=== PATIENT | female | born 1940 | race Caucasian/White ===

== ENCOUNTER 2018-02-24 06:58 | Outpatient (CLI) | payer OTHER ==
[2016-04-26 11:11] VITALS: BMI 18.5
--- NOTE | 2018-02-24 10:34 | STECHESEMD ---
Date of Test: 02/24/18 Ordering Physician: DR. TOSHA SHANNON Occupation: RETIRED Reason for Exam: SOB, CAD WITH STENT, CABG Smoking History: QUIT 2009 Height: 64" Weight: 115 LBS Current Medications: XOPENEX, NITROSTAT, ALENDRONATE, ALPRAZOLAM, CLOPIDOGREL, ASA, ATORVASTATIN, CARVEDILOL, TRIAMERENE, GABAPENTIN, PRAVASTATIN Resting EKG: SINUS RHYTHM/ NO ACUTE CHANGES Target Heart Rate: 123/145 S-T SEGMENT STAGE MPH/GRADE HEART RATE BPM BLOOD PRESSURE mmhg RHYTHM +/- ELEVATION DEPRESSION SYMPTOMS,COMMENTS At Rest 76 108/72 SR X NONE 1 1.7/0% 93 142/70 SR X NONE 2 1.7/5% 105 146/66 SR X NONE 3 1.7/10% 110 156/172 SR X NONE 4 2.5/12% 5 3.4/14% Immediately after 123 SR X FATIGUE Minutes Post Exercise 5:00 80 150/78 SR X FATIGUE Minutes Post Exercise DURATION OF EXERCISE: 10:11 MAXIMUM HEART RATE REACHED: 123 REASON FOR TERMINATION: FATIGUE 96% OXYGEN SATURATION WITH EXERCISE ON ROOM AIR METS 7.0 INTERPRETATION: 1. NO EVIDENCE OF ISCHEMIA BY ST-T WAVE 2. PVC'S NOTED AT REST AND WITH EXERCISE ( FEW, ISOLATED) 3. NO CHEST PAIN OR DISCOMFORT 4. BLOOD PRESSURE RESPONSE ADEQUATE HYPOKINETIC SEPTUM WITH IMPROVED LEFT VENTRICULAR CONTRACTILITY WITH EXERCISE SESTAMIBI TO FOLLOW MTDD
--- NOTE | 2018-02-24 10:38 | ECHOSTRESS ---
Date of Exam: 02/24/18 Ordering Physician: DR. TOSHA SHANNON Reason for Echo: CHEST PAIN, SOB, CAD WITH STENT, CABG, STRESS TEST--NO ISCHEMIA M-Mode Normal Adult Results LV Dimensions Normal Adult Results AoV Opening excursions >1.6 LVEDD-base- 3.5-5.8 Ao root dimensions 2.0-3.7 LVESD-base- 3.1-4.6 L. Atrium dimensions 1.9-3.8 Post. Wall thickness 0.8-1.1 IV septum (thickness) 0.7-1.2 Post. Wall excursion 0.72-1.3 Septal motion Systolic motion R. Ventricular cavity 1.5-2.0 LVEF 60% Paradoxical septal wall motion 2-D: HYPOKINETIC SEPTUM AT REST--NORMAL LEFT VENTRICULAR CONTRACTILITY--WITH EXERCISE M-MODE: MV: AV: TV: PV: CHAMBER SIZE: WALL MOTION:HYPOKINETIC SEPTUM AT REST--NORMAL LEFT VENTRICULAR CONTRACTILITY-- WITH EXERCISE PERICARDIUM: INTERPRETATION: 1. HYPOKINETIC SEPTUM AT REST--NORMAL LEFT VENTRICULAR CONTRACTILITY--WITH EXERCISE MTDD
--- NOTE | 2018-02-24 10:46 | NM ---
EXAM: Myocardial perfusion imaging HISTORY: Shortness of breath and coronary artery disease COMPARISON: Myocardial imaging on 04/12/2014 was normal. TECHNIQUE: Patient was injected 3.5 mCi of thallium 201 chloride intravenously while at rest. SPECT imaging of the heart was acquired. Patient was stressed using treadmill and at peak exercise injecte d 25.3 mCi of Tc99m Sestamibi intravenously. Another SPECT imaging of the heart was then acquired. Gated cardiac study was also performed. FINDINGS: Post stress images show normal left ventricular cavity size. There is a focal area of redu roel perfusion involving left ventricle apex. This shows reperfusion on delayed imaging. Another foc al area of reduced perfusion is noted in the mid-anterior wall which shows reperfusion on delayed frieda ging. The left ventricular ejection fraction is 61%. IMPRESSION: 1. SPECT myocardial imaging demonstrates a focal area of reversible ischemia involving mid-anterior wall and left ventricle apex. Left ventricular ejection fraction of 61%.
--- NOTE | 2018-02-24 12:37 | DI ---
EXAM: Chest two views HISTORY: Shortness of breath, chronic obstructive pulmonary disease COMPARISON: 04/23/2016 TECHNIQUE: Two views of the chest were performed FINDINGS: Lungs are clear. Lungs are hyperinflated. There is no pleural effusion or pneumothorax. The heart is normal in size. The mediastinal contour is normal, noting atherosclerosis. Median kalen rnotomy wires.. There are no acute abnormalities of the bones. IMPRESSION: 1. No acute cardiopulmonary process. 2. Hyperinflated lungs suggest chronic obstructive pulmonary disease.
--- NOTE | 2018-02-27 06:39 | ECHO2D ---
Date of Exam: 02/24/18 Ordering Physician: DR. TOSHA SHANNON Room #: OP Reason for Echo: SOB, CAD WITH STENT, CABG M-Mode Normal Adult Results LV Dimensions Normal Adult Results AoV Opening excursions >1.6 >1.6 LVEDD-base- 3.5-5.8 4.1 Ao root dimensions 2.0-3.7 3.0 LVESD-base- 3.1-4.6 L. Atrium dimensions 1.9-3.8 5.2 Post. Wall thickness 0.8-1.1 1.1 IV septum (thickness) 0.7-1.2 1.2 Post. Wall excursion 0.72-1.3 NORMAL Septal motion 0.5 Systolic motion R. Ventricular cavity 1.5-2.0 NORMAL LVEF 60% 46% Paradoxical septal wall motion NORMAL 2-D : HYPOKINETIC SEPTUM-NORMAL VALVES--NO EFFUSION, NO THROMBUS, ENLARGED LEFT ATRIAL SIZE, NORMAL LEFT VENTRICLE SIZE M-MODE: MV: NORMAL AV: NORMAL TV: NORMAL PV: CHAMBER SIZE: ENLARGED LEFT ATRIAL CAVITY WALL MOTION: HYPOKINETIC SEPTAL WALL PERICARDIUM: NORMAL INTERPRETATION: 1. LEFT VENTRICULAR HYPERTROPHY WITH ENLARGED LEFT ATRIAL CAVITY 2. HYPOKINETIC SEPTUM WITH LEFT VENTRICULAR EJECTION FRACTION 46% 3. NORMAL VALVES MTDD
== END 2018-02-24 06:59 | disposition home or self-care (01) ==
LOC: CAR 06:58
PROVIDERS: ATTEND Internal Medicine
DX: R06.02 Shortness of breath (principal); I25.810 Atherosclerosis of coronary artery bypass graft(s) without angina pectoris; Z95.5 Presence of coronary angioplasty implant and graft; J44.9 Chronic obstructive pulmonary disease, unspecified
CPT/HCPCS: 93005; 93010

== ENCOUNTER 2019-09-24 14:01 | Inpatient (IN) ==
[2019-09-24 14:49] VITALS: BMI 18.8
[2019-09-24] MEDS ORDERED: TYLENOL PO PRN (14:50)
[2019-09-24] MEDS ORDERED: ATROPINE SULFATE PFS IVP PRN (14:50)
[2019-09-24] MEDS ORDERED: VISTARIL INJ IM PRN (14:50)
[2019-09-24] MEDS ORDERED: DECADRON 4 MG/ML SDV IM STA (14:52)
[2019-09-24] MEDS ORDERED: ZOFRAN 4 MG/2 ML IVP STA (14:53)
[2019-09-24] MEDS ORDERED: ZOFRAN 4 MG/2 ML IVP PRN (14:53)
[2019-09-24] MEDS ORDERED: ZESTRIL PO ONE (14:55)
[2019-09-24] MEDS ORDERED: ROCEPHIN 1 GM/50 ML D5W 1 GM/50 ML BAG IV STA (15:00)
[2019-09-24 15:07] LABS: HEMATOCRIT 41.7 % (37.0-47.0)
--- NOTE | 2019-09-24 15:45 | DI ---
EXAM: Chest two views HISTORY: Cough COMPARISON: 02/24/2018 TECHNIQUE: Two views of the chest were performed FINDINGS: Lungs are clear. Lungs are hyperinflated. There is no pleural effusion or pneumothorax. The heart is normal in size. The mediastinal contour is normal, noting atherosclerosis. Median kalen rnotomy wires. There are no acute abnormalities of the bones. IMPRESSION: 1.No acute cardiopulmonary process. 2. Hyperinflated lungs may suggest chronic obstructive pulmonary disease.
[2019-09-24] MEDS ORDERED: LOMOTIL PO STA (15:47)
[2019-09-24] MEDS ORDERED: NITROGLYCERIN 0.3 MG SL PRN (15:50)
[2019-09-24] MEDS: DEXTROSE 5%-1/2NS IV SOLUTION 1,000 ML IV SCH (16:44)
[2019-09-24] MEDS: XOPENEX 1.25 MG NEB SCH ×2 (16:50→22:45)
[2019-09-24] MEDS: DOXYCYCLINE HYCLATE PO SCH ×2 (16:53→21:39)
[2019-09-24] MEDS: COREG PO SCH (17:29)
[2019-09-24] MEDS: CALCIUM 500 + VIT D 200 MG TABLET PO SCH (20:14)
[2019-09-24] MEDS: ASPIRIN CHEWABLE PO SCH (20:14)
[2019-09-24] MEDS: GLUCOSAMINE CHONDROITIN PO SCH (20:16)
[2019-09-24] MEDS: OMEGA-3 FISH OIL PO SCH (20:17)
[2019-09-24] MEDS: NEURONTIN PO SCH (20:17)
[2019-09-24] MEDS: VITAMIN D PO SCH (20:20)
[2019-09-24] MEDS: PLAVIX PO SCH (20:20)
[2019-09-24] MEDS ORDERED: [UNRECOGNIZED DRUG - OTHER] PO SCH (21:00)
[2019-09-24] MEDS ORDERED: OMEGA PO SCH (21:00)
[2019-09-24] MEDS: XANAX PO PRN (21:39)
[2019-09-25] MEDS: DEXTROSE 5%-1/2NS IV SOLUTION 1,000 ML IV SCH ×2 (04:15→17:50)
[2019-09-25] MEDS: XOPENEX 1.25 MG NEB SCH ×4 (05:06→23:00)
[2019-09-25 05:10] LABS: HEMATOCRIT 42.8 % (37.0-47.0)
[2019-09-25] MEDS ORDERED: ASPIRIN EC PO SCH (08:00)
[2019-09-25] MEDS: DECADRON 4 MG/ML SDV IM SCH (08:34)
[2019-09-25] MEDS: COREG PO SCH ×2 (08:35→16:37)
[2019-09-25] MEDS: DOXYCYCLINE HYCLATE PO SCH ×2 (08:35→20:28)
[2019-09-25] MEDS: NEURONTIN PO SCH ×2 (08:35→20:29)
[2019-09-25] MEDS: DYAZIDE PO SCH (08:35)
--- NOTE | 2019-09-25 08:35 | PCM.PROG ---
Attending Provider: ATTENDING PROVIDER: Dr. TOSHA SHANNON DATE OF SERVICE: 09/25/19 SUBJECTIVE: This 79 year old /WHITE F was hospitalized 09/24/19 with acute gastroenteritis symptoms and acute bronchitis with dehydration. The patient had not eaten for 3 days. She was lightheaded and dizzy. Condition improved remarkably. Gastroenteritis has practically resolved. She still has mild to moderate cough. REVIEW OF SYSTEMS: CONSTITUTIONAL: No night sweats. No fatigue, malaise, lethargy. No fever or chills. HEENT: Eyes: No visual changes. No eye pain. No eye discharge. ENT: No runny nose. No epistaxis. No sinus pain. No odynophagia. No congestion. RESPIRATORY: Positive for cough and expiratory wheeze. No hemoptysis. No shortness of breath. CARDIOVASCULAR: No angina symptoms. No CHF symptoms. No atypical chest pain for CAD. No palpitations. No orthopnea.. GASTROINTESTINAL: Appetite improved. No abdominal pain. No nausea or vomiting. No diarrhea or constipation. No hematemesis. No hematochezia. GENITOURINARY: No urgency. No frequency. No dysuria. No hematuria. No obstructive symptoms. No discharge. No pain. No significant abnormal bleeding. MUSCULOSKELETAL: No musculoskeletal pain; no joint swelling. NEUROLOGICAL: Awake, alert, oriented to time, place and person. No headache. No neck pain. No syncope. No seizures. No dizziness. PSYCHIATRIC: Not anxious. No depression. No suicidal thoughts. No homicidal thoughts. SKIN: No rash. No lesions. No wounds. ENDOCRINE: No unexplained weight loss. No weight gain. HEMATOLOGIC/LYMPHATIC: No anemia. No purpura. No petechiae. No prolonged or excessive bleeding. No palpable lymph nodes. PHYSICAL EXAMINATION: GENERAL: The patient is awake, alert and oriented, lying/sitting in bed in no distress. VITAL SIGNS: Temperature 98.1 F, Pulse 67, Respiratory Rate 20, BP 149/72, Pulse Ox 100% HEENT: Head normocephalic, atraumatic. Eyes: Extraocular muscles are intact. Pupils are equal, round and reactive to light and accommodation. Ears: No lesions. Nose appeared normal. Throat: No exudate or erythema. NECK: Supple. No JVD, no carotid bruit. No lymphadenopathy or thyromegaly. LUNGS: Decreased breath sounds with mild expiratory wheeze. Clear to auscultation. Percussion note normal. Chest symmetrical. HEART: S1, S2, no S3. No murmurs. No cyanosis or clubbing. No ascites. Pulses: Dorsalis pedis and posterior tibial pulses +1 to +2 both sides. ABDOMEN: Soft. Non-tender. Bowel sounds active. No CVA tenderness. No mass felt. EXTREMITIES: No edema. Full range of motion of all extremities, equal. NEUROLOGIC: No focal deficit. Cranial nerves II through XII are grossly intact. No headache, no double vision or headache. SKIN: Warm and dry. Intact. Turgor-better. LYMPHATIC: No palpable lymph nodes/no lymphedema. MUSCULOSKELETAL: Normal joints with no swelling. Muscle tone is normal. LAB REVIEW: 09/25/19 04:55 09/25/19 04:55 09/25/19 04:55: Sodium 139.3, Potassium 4.31, Chloride 100.7, Carbon Dioxide 31.1 H, Anion Gap 11.81, BUN 20.6 H, Creatinine 0.80, Estimated GFR (MDRD) 70.00, BUN/Creatinine Ratio 25.75, Glucose 115.0 H, Calcium 9.43, Total Bilirubin 0.35, AST 40.1 H, ALT 16.1, Alkaline Phosphatase 76.8, Total Protein 6.91, Albumin 4.01, Globulin 2.90, Albumin/Globulin Ratio 1.38 09/25/19 04:55: WBC 6.30, RBC 4.47, Hgb 14.0, Hct 42.8, MCV 95.7, MCH 31.3 H, MCHC 32.7, RDW Coeff of Figueroa 12.8, Plt Count 241, Immature Gran % (Auto) 0.5, Neut % (Auto) 80.2 H, Lymph % (Auto) 15.4, Nicholas % (Auto) 3.7, Eos % (Auto) 0.0, Baso % (Auto) 0.2, Immature Gran # (Auto) 0.0, Neut # (Auto) 5.1, Lymph # (Auto) 1.0, Nicholas # (Auto) 0.2 L, Eos # (Auto) 0.0, Baso # (Auto) 0.0 09/25/19 04:35: Urine Color Yellow, Urine Clarity Clear, Urine pH 5.5, Ur Specific Grover >=1.030, Urine Protein Negative, Urine Glucose (UA) Negative, Urine Ketones Negative, Urine Blood Negative, Urine Nitrite Negative, Urine Bilirubin Negative, Urine Urobilinogen 0.2, Ur Leukocyte Esterase Negative 09/24/19 22:55: Total Creatine Kinase 84.3, Troponin I < 0.012, TSH 0.204 L 09/24/19 15:02: Sodium 137.7, Potassium 3.74, Chloride 100.3, Carbon Dioxide 30.2 H, Anion Gap 10.94, BUN 20.5 H, Creatinine 0.86, Estimated GFR (MDRD) 64.00, BUN/Creatinine Ratio 23.83, Glucose 164.9 H, Calcium 9.10, Total Bilirubin 0.54, AST 40.7 H, ALT 16.4, Alkaline Phosphatase 89.5, Total Creatine Kinase 114.9, Troponin I < 0.012, Total Protein 6.63, Albumin 3.97, Globulin 2.66, Albumin/Globulin Ratio 1.49 09/24/19 15:02: WBC 7.42, RBC 4.42, Hgb 14.0, Hct 41.7, MCV 94.3, MCH 31.7 H, MCHC 33.6, RDW Coeff of Figueroa 12.9, Plt Count 241, Immature Gran % (Auto) 0.3, Neut % (Auto) 81.8 H, Lymph % (Auto) 13.6, Nicholas % (Auto) 4.2, Eos % (Auto) 0.0, Baso % (Auto) 0.1, Immature Gran # (Auto) 0.0, Neut # (Auto) 6.1, Lymph # (Auto) 1.0, Nicholas # (Auto) 0.3 L, Eos # (Auto) 0.0, Baso # (Auto) 0.0 09/24/19 15:00: Influ A Molecular Assay Negative by naat, Influ B Molecular Assay Negative by naat 09/24/19 14:59: Puncture Site Lrad, O2 Saturation 91.0 L, ABG pH 7.441, ABG pCO2 40.0, ABG pO2 60.0 L, ABG HCO3 27.2 H, ABG Total CO2 28, ABG Base Excess 3 H, Eusebio Test +, FiO2 % 21.0 ASSESSMENT: Please see below. 1. Acute gastroenteritis seems to have resolved. 2. Acute bronchitis with severe chronic lung disease. 3. Dehydration resolved, skin turgor better. PLAN: 1. Continue p.o. antibiotics, steroids and nebs. 2. Will d/c IV fluids. 3. Echocardiogram normal with LV contractility, enlarged RV cavity with v alvular structures normal. Plan and coordination of the patient's care discussed in the presence of [employer] and nurse. CONDITION: Stable SCRIBED BY: TEO SHAH, Heating Equipment Repairer scribed while in presence of service performed by Dr. TOSHA SHANNON on 09/25/19 ([id number])
[2019-09-25] MEDS: FLUTICASONE FUROATE VILANTEROL IH SCH (08:43)
[2019-09-25] MEDS ORDERED: ROCEPHIN 1 GM/50 ML D5W 1 GM/50 ML BAG IV SCH (09:00)
[2019-09-25] MEDS: XANAX PO PRN (09:59)
[2019-09-25] MEDS: ALBUTEROL 0.083% NEB NEB PRN (10:00)
--- NOTE | 2019-09-25 10:48 | HP ---
DATE OF SERVICE: 09/24/19 HISTORY OF PRESENT ILLNESS: 79-year-old White female with complaint of cough/congestion/diarrhea times 7 days. Also dizziness/light-headed/weak/pleuritic pain right-sided. The patient was seen on 09/20/19 and was given Cipro and steroids. The patient was advised hospitalization and had refused. No symptoms of CHF or CAD. PAST MEDICAL HISTORY: COPD Hypertension CAD with stent application 2009 Dyslipidemia Renal artery stenosis, left greater than right Basal cell carcinoma ( Case 09/2019 Anemia B12 deficiency Generalized anxiety disorder History of tobacco use (30 years) Osteoarthritis Osteoporosis Heart cath 03/2018 Dr. Pryor (Normal) CABG 1997 Right shoulder PFT (2017) severe COPD Stress Sestamibi (2017) Positive for focal area of reversible ischemia involving mid anterior wall and left ventricle apex MENSTRUAL HISTORY: 1997 PAST SURGICAL HISTORY: T & A Right knee times five Left knee, Ankle Tubal Gallbladder Incisional hernia Heart cath 03/2018 Dr. Pryor (Normal) CABG 1997 Right shoulder REVIEW OF SYSTEMS: CONSTITUTIONAL: No fever, no fatigue. HEENT: Sinus drainage. No sore throat. RESPIRATORY: Positive for cough. No hemoptysis. CARDIOVASCULAR: Positive for atypical chest pain for coronary artery disease. No angina, CHF symptoms, palpitations or shortness of breath. GASTROINTESTINAL: Vomited times three. No diarrhea or constipation. No GERD. GENITOURINARY: No hematuria, no polyuria. INDUSTRIAL GAS PRODUCTION OPERATOR: No blackout, no dizziness, no headache, no double vision. MUSCULOSKELETAL: Osteoarthritis pain. ENDOCRINE: No weight loss, no weight gain. SKIN: Dry skin. No rash. PSYCHIATRIC: Anxious. No depression, no suicidal thoughts, no homicidal thoughts. SOCIAL HISTORY: The patient quit smoking. No alcohol use. No drug use. The patient is . She has three children. Retired. FAMILY HISTORY: Father is from unknown. Mother from pneumonia. No brothers. No sisters. MEDICATIONS: Xanax 0.25 mg t.i.d. B12 monthly 1000 mcg Coreg 12.5 mg b.i.d. Pravachol 80 mg one daily Plavix 75 mg one daily Neurontin 600 mg b.i.d. Dyazide three weekly p.r.n. Albuterol for nebulizer 0.083% p.r.n. Osteo Bi-Flex [id number] one daily ASA 81 mg one daily Nitroglycerin p.r.n. Vitamin D 1000 mg one daily Fish Oil 1000 mg one daily Breo Started : Cipro 500 mg b.i.d. times 10 days Prednisone one daily times 10 days ALLERGIES: CODEINE (FROM EMPIRIN W/CODEINE), SULFA, LEVAQUIN, TALWIN, LIPITOR, PENICILLIN, DYE PHYSICAL EXAMINATION: V/S: Pulse 86, BP 118/68, temperature 97.7, 02 sat 94%, Height 5'4", Weight 109 lbs, BMI 18.5 GENERAL APPEARANCE: Oriented times three. HEENT: Normal. NECK: No JVP, no bruits. RESPIRATORY: Lungs have decreased breath sounds. CARDIOVASCULAR: S1, S2, no S3, no murmur. No cyanosis, clubbing. No ascites. GI/ABDOMEN: No tenderness. Bowel sounds are active. EXTREMITIES: edema, pulses +1, equal. INDUSTRIAL GAS PRODUCTION OPERATOR: Deep tendon reflexes, sensory, motor and gait all normal. RECTAL/PELVIC: Colonoscopy - the patient refused. Pelvic: Advised yearly. Mammogram 2005 [place]. [facility] refused repeat. ASSESSMENT: 1. Acute gastroenteritis 2. Acute bronchitis 3. Right-sided pleuritic pain 4. Dehydration 5. Vascular/ M.D. December 2019 6. Basal cell carcinoma nose, Dr. Frazier, appointment 10/18 7. History of bronchitis 8. Left renal artery stenosis left 86%, right 50% ( Dr. Garrido) 9. Heart cath 03/18 Dr. Pryor (Normal) 10. Stress Sestamibi 02/24/18 11. B12 deficiency 12. Osteoarthritis/osteoporosis 13. Anemia 14. Hypertension 15. CAD with stent 06/10 16. Right Shoulder (Dr. Bowman) 17. COPD - history of smoking 18. CABG's 1997 19. Generalized anxiety disorder 20. Dyslipidemia PLAN: 1. Admit 2. Routine telemetry orders 3. 1 cc Decadron IM today and daily a.m. 4. Zofran 4 mg IV now and 8 hourly for nausea 5. Lomotil 2.5 mg p.o. now 6. 1000 cc D5 1/2 NS 12 hourly 7. Daily CBC, CMP 8. ABG 9. Xopenex q.6hourly 10. Rocephin 1 gm IV today and daily a.m. 11. TSH 12. Flu A & B test 13. Continue all medications TIME SPENT: More than 70 minutes MTDD
[2019-09-25] MEDS: NITROSTAT SL PRN ×2 (17:16→18:03)
[2019-09-25] MEDS: ASPIRIN CHEWABLE PO SCH (20:28)
[2019-09-25] MEDS: OMEGA-3 FISH OIL PO SCH (20:28)
[2019-09-25] MEDS: VITAMIN D PO SCH (20:29)
[2019-09-25] MEDS: PLAVIX PO SCH (20:29)
[2019-09-25] MEDS: CALCIUM 500 + VIT D 200 MG TABLET PO SCH (20:29)
[2019-09-25] MEDS: GLUCOSAMINE CHONDROITIN PO SCH (21:12)
[2019-09-26 05:07] LABS: HEMATOCRIT 38.6 % (37.0-47.0)
[2019-09-26] MEDS: XOPENEX 1.25 MG NEB SCH ×4 (05:10→22:55)
--- NOTE | 2019-09-26 08:17 | ECHO2D ---
Date of Exam: 09/25/2019 Ordering Physician: DR. TOSHA SHANNON Room #: [id number] Reason for Echo: SOB, HX CAD WITH STENT, CABG M-Mode Normal Adult Results LV Dimensions Normal Adult Results AoV Opening excursions >1.6 >1.6 LVEDD-base- 3.5-5.8 4.1 Ao root dimensions 2.0-3.7 3.0 LVESD-base- 3.1-4.6 L. Atrium dimensions 1.9-3.8 4.6 Post. Wall thickness 0.8-1.1 1.2 IV septum (thickness) 0.7-1.2 1.2 Post. Wall excursion 0.72-1.3 NORMAL Septal motion 0.8 Systolic motion R. Ventricular cavity 1.5-2.0 3.0 LVEF 60% 55-60% Paradoxical septal wall motion NORMAL 2-D : 2-D M Mode Echocardiogram was performed using apical four chamber and left parasternal long and short axis views. Mitral, tricuspid and aortic valves appear to be normal. Contractility of the left ventricle seems to be normal, so is the cavity size. ENLARGED LEFT ATRIAL CAVITY AND RIGHT VENTRICLE CAVITY Aortic root appears to be normal. There is no pericardial effusion. There is no thrombus noted in the left ventricle or left atrial cavity. No mitral valve prolapse noted. M-MODE: MV: NORMAL AV: NORMAL TV: NORMAL PV: CHAMBER SIZE: ENLARGED RIGHT VENTRICLE AND LEFT ATRIAL CAVITIES WALL MOTION: NORMAL PERICARDIUM: NORMAL INTERPRETATION: 1. BORDERLINE LEFT VENTRICLE HYPERTROPHY 2. ENLARGED LEFT ATRIAL AND RIGHT VENTRICLE CAVITIES 3. NORMAL LEFT VENTRICLE CONTRACTILITY 4. NORMAL VALVES MTDD
[2019-09-26] MEDS: COREG PO SCH ×2 (08:31→16:54)
[2019-09-26] MEDS: DOXYCYCLINE HYCLATE PO SCH ×2 (08:31→20:33)
[2019-09-26] MEDS: NEURONTIN PO SCH ×2 (08:32→20:32)
[2019-09-26] MEDS: DECADRON 4 MG/ML SDV IM SCH (08:33)
[2019-09-26] MEDS: FLUTICASONE FUROATE VILANTEROL IH SCH (08:38)
[2019-09-26] MEDS ORDERED: SYMBICORT 160-4.5 MCG INHALER IH SCH (11:30)
[2019-09-26] MEDS: SYMBICORT 160-4.5 MCG INHALER IH SCH (11:52)
--- NOTE | 2019-09-26 12:47 | PN ---
DATE OF SERVICE: 09/26/19 SUBJECTIVE: This 79-year-old white female hospitalized with acute gastroenteritis, acute bronchitis and chronic lung disease. The acute gastroenteritis has completely resolved. Appetite is normal. Bronchitis still persists. She is on nebs treatments, antibiotics and steroids. REVIEW OF SYSTEMS: CONSTITUTIONAL: No night sweats. No fatigue, malaise, lethargy. No fever or chills. HEENT: Eyes: No visual changes. No eye pain. No eye discharge. ENT: No runny nose. No epistaxis. No sinus pain. No sore throat. No odynophagia. No congestion. RESPIRATORY: No cough, no congestion. No hemoptysis. No shortness of breath. CARDIOVASCULAR: No angina symptoms. No CHF symptoms. No atypical chest pain for CAD. No palpitations. No PND. No orthopnea. GASTROINTESTINAL: Appetite has improved. No abdominal pain. No nausea or vomiting. No diarrhea or constipation. No hematemesis. No hematochezia. GENITOURINARY: No urgency. No frequency. No dysuria. No hematuria. No obstructive symptoms. No discharge. No pain. No significant abnormal bleeding. MUSCULOSKELETAL: No musculoskeletal pain; no joint swelling. NEUROLOGICAL: No headache. No neck pain. No syncope. No seizures. No dizziness. PSYCHIATRIC: Not anxious. No depression. No suicidal thoughts. No homicidal thoughts. SKIN: No rash. No lesions. No wounds. ENDOCRINE: No unexplained weight loss. No weight gain. HEMATOLOGIC/LYMPHATIC: No anemia. No purpura. No petechiae. No prolonged or excessive bleeding. No palpable lymph nodes. PHYSICAL EXAMINATION: VITAL SIGNS: Temperature 97.7, pulse 69, respiratory rate 20, BP 140/79, pulse ox 97%. HEENT: Head normocephalic, atraumatic. Eyes: Extraocular muscles are intact. Pupils are equal, round and reactive to light and accommodation. Ears: No lesions. Nose appeared normal. Throat: No exudate or erythema. NECK: Supple. No JVD, no carotid bruit. No lymphadenopathy or thyromegaly. LUNGS: Decreased breath sounds, mild wheeze. Percussion note normal. Chest symmetrical. HEART: S1, S2, no S3. No murmurs. No cyanosis or clubbing. No ascites. Pulses: Dorsalis pedis and posterior tibial pulses +1 to +2 bilaterally. ABDOMEN: Soft. Nontender. Bowel sounds active. No CVA tenderness. No mass felt. EXTREMITIES: No edema. Full range of motion of all extremities, equal. NEUROLOGIC: No focal deficit. Cranial nerves II through XII are grossly intact. No headache, no double vision or headache. SKIN: Not dry. Intact. Turgor - normal. LYMPHATIC: No palpable lymph nodes/no lymphedema. MUSCULOSKELETAL: Normal joints with no swelling. Muscle tone is normal. LABS: Hemoglobin 12.7, hematocrit 38, WBC 9,400, normal differential. Creatinine 0.9, BUN 21, potassium 3.8. ASSESSMENT: 1. ACUTE BRONCHITIS WITH COPD SEEMS TO BE RESOLVING, STILL NEEDS TO HAVE FURTHER HOSPITALIZATION WITH NEBS AND ANTIBIOTICS. 2. ACUTE GASTROENTERITIS, RESOLVED. 3. DEHYDRATION, RESOLVED. 4. CARDIOVASCULAR STATUS STABLE. NO EVIDENCE OF CHF OR CORONARY INSUFFICIENCY. CONDITION: Stable. TIME SPENT: More than 30 minutes. Plan and coordination of the patient's care discussed in the presence of nurse. FUAD
[2019-09-26] MEDS ORDERED: PROAIR HFA (SINGLE PATIENT USE) IH PRN (13:55)
[2019-09-26] MEDS: PROAIR HFA (SINGLE PATIENT USE) IH PRN (14:05)
[2019-09-26] MEDS: ASPIRIN CHEWABLE PO SCH (20:32)
[2019-09-26] MEDS: CALCIUM 500 + VIT D 200 MG TABLET PO SCH (20:33)
[2019-09-26] MEDS: OMEGA-3 FISH OIL PO SCH (20:33)
[2019-09-26] MEDS: VITAMIN D PO SCH (20:33)
[2019-09-26] MEDS: XANAX PO PRN (20:33)
[2019-09-26] MEDS: PLAVIX PO SCH (20:33)
[2019-09-26] MEDS: GLUCOSAMINE CHONDROITIN PO SCH (20:50)
[2019-09-27 04:46] LABS: HEMATOCRIT 39.2 % (37.0-47.0)
[2019-09-27] MEDS: XOPENEX 1.25 MG NEB SCH ×4 (05:25→23:09)
[2019-09-27] MEDS: PROAIR HFA (SINGLE PATIENT USE) IH PRN ×2 (06:30→10:31)
[2019-09-27] MEDS: COREG PO SCH ×2 (08:16→17:32)
[2019-09-27] MEDS: DECADRON 4 MG/ML SDV IM SCH (08:16)
[2019-09-27] MEDS: NEURONTIN PO SCH ×2 (08:16→20:20)
[2019-09-27] MEDS: DOXYCYCLINE HYCLATE PO SCH ×2 (08:16→20:19)
[2019-09-27] MEDS: FLUTICASONE FUROATE VILANTEROL IH SCH (08:17)
[2019-09-27] MEDS: SYMBICORT 160-4.5 MCG INHALER IH SCH (08:17)
[2019-09-27] MEDS: DYAZIDE PO SCH (08:17)
--- NOTE | 2019-09-27 08:32 | PCM.PROG ---
Attending Provider: ATTENDING PROVIDER: Dr. TOSHA SHANNON DATE OF SERVICE: 09/27/19 SUBJECTIVE: This 79 year old /WHITE F was hospitalized 09/24/19 with acute bronchitis and COPD. The patient's condition has improved. REVIEW OF SYSTEMS: CONSTITUTIONAL: No night sweats. No fatigue, malaise, lethargy. No fever or chills. HEENT: Eyes: No visual changes. No eye pain. No eye discharge. ENT: No runny nose. No epistaxis. No sinus pain. No odynophagia. No congestion. RESPIRATORY: No cough, no congestion. No hemoptysis. No shortness of breath. CARDIOVASCULAR: No angina symptoms. No CHF symptoms. No atypical chest pain for CAD. No palpitations. No orthopnea.. GASTROINTESTINAL: No abdominal pain. No nausea or vomiting. No diarrhea or constipation. No hematemesis. No hematochezia. GENITOURINARY: No urgency. No frequency. No dysuria. No hematuria. No obstructive symptoms. No discharge. No pain. No significant abnormal bleeding. MUSCULOSKELETAL: No musculoskeletal pain; no joint swelling. NEUROLOGICAL: Awake, alert, oriented to time, place and person. No headache. No neck pain. No syncope. No seizures. No dizziness. PSYCHIATRIC: Not anxious. No depression. No suicidal thoughts. No homicidal thoughts. SKIN: No rash. No lesions. No wounds. ENDOCRINE: No unexplained weight loss. No weight gain. HEMATOLOGIC/LYMPHATIC: No anemia. No purpura. No petechiae. No prolonged or excessive bleeding. No palpable lymph nodes. PHYSICAL EXAMINATION: GENERAL: The patient is awake, alert and oriented, lying/sitting in bed in no distress. VITAL SIGNS: Temperature 98.0 F, Pulse 72, Respiratory Rate 18, BP 158/81, Pulse Ox 97% HEENT: Head normocephalic, atraumatic. Eyes: Extraocular muscles are intact. Pupils are equal, round and reactive to light and accommodation. Ears: No lesions. Nose appeared normal. Throat: No exudate or erythema. NECK: Supple. No JVD, no carotid bruit. No lymphadenopathy or thyromegaly. LUNGS: Decreased breath sounds with mild wheeze. Percussion note normal. Chest symmetrical. HEART: S1, S2, no S3. No murmurs. No cyanosis or clubbing. No ascites. Pulses: Dorsalis pedis and posterior tibial pulses +1 to +2 both sides. ABDOMEN: Soft. Non-tender. Bowel sounds active. No CVA tenderness. No mass fe lt. EXTREMITIES: No edema. Full range of motion of all extremities, equal. NEUROLOGIC: No focal deficit. Cranial nerves II through XII are grossly intact. No headache, no double vision or headache. SKIN: Warm and dry. Intact. Turgor-normal. LYMPHATIC: No palpable lymph nodes/no lymphedema. MUSCULOSKELETAL: Normal joints with no swelling. Muscle tone is normal. LAB REVIEW: 09/27/19 04:19 09/27/19 04:19 09/27/19 04:19: Sodium 138.6, Potassium 3.80, Chloride 99.7, Carbon Dioxide 33.8 H, Anion Gap 8.90, BUN 32.2 H, Creatinine 0.87, Estimated GFR (MDRD) 63.00, BUN/Creatinine Ratio 37.01, Glucose 98.8, Calcium 9.43, Total Bilirubin 0.24, AST 23.6, ALT 13.6, Alkaline Phosphatase 67.7, Total Protein 6.21 L, Albumin 3.58, Globulin 2.63, Albumin/Globulin Ratio 1.36 09/27/19 04:19: WBC 8.85, RBC 4.11 L, Hgb 12.9, Hct 39.2, MCV 95.4, MCH 31.4 H, MCHC 32.9, RDW Coeff of Figueroa 13.1, Plt Count 242, Immature Gran % (Auto) 0.7, Neut % (Auto) 78.7 H, Lymph % (Auto) 14.7, Miller % (Auto) 5.8, Eos % (Auto) 0.0, Baso % (Auto) 0.1, Immature Gran # (Auto) 0.1, Neut # (Auto) 7.0 H, Lymph # ( Auto) 1.3, Miller # (Auto) 0.5, Eos # (Auto) 0.0, Baso # (Auto) 0.0 ASSESSMENT: Please see below. 1. Acute bronchitis with COPD. PLAN: Continue nebs, steroids and antibiotics. Plan and coordination of the patient's care discussed in the presence of Gr[employer] and nurse. CONDITION: Stable SCRIBED BY: TEO SHAH Sas Analyst scribed while in presence of service performed by Dr. TOSHA SHANNON on 09/27/19 ([id number])
[2019-09-27] MEDS: NITROSTAT SL PRN (10:42)
[2019-09-27] MEDS: ASPIRIN CHEWABLE PO SCH (20:19)
[2019-09-27] MEDS: VITAMIN D PO SCH (20:20)
[2019-09-27] MEDS: OMEGA-3 FISH OIL PO SCH (20:20)
[2019-09-27] MEDS: PLAVIX PO SCH (20:20)
[2019-09-27] MEDS: CALCIUM 500 + VIT D 200 MG TABLET PO SCH (20:20)
[2019-09-27] MEDS: XANAX PO PRN (20:29)
[2019-09-27] MEDS: GLUCOSAMINE CHONDROITIN PO SCH (21:19)
[2019-09-28 05:07] LABS: HEMATOCRIT 41.1 % (37.0-47.0)
[2019-09-28] MEDS: XOPENEX 1.25 MG NEB SCH ×3 (05:17→17:00)
[2019-09-28] MEDS: SYMBICORT 160-4.5 MCG INHALER IH SCH (08:39)
[2019-09-28] MEDS: COREG PO SCH ×2 (08:40→17:24)
[2019-09-28] MEDS: DOXYCYCLINE HYCLATE PO SCH ×2 (08:40→20:41)
[2019-09-28] MEDS: DECADRON 4 MG/ML SDV IM SCH (08:40)
[2019-09-28] MEDS: NEURONTIN PO SCH ×2 (08:40→20:41)
[2019-09-28] MEDS: FLUTICASONE FUROATE VILANTEROL IH SCH (08:41)
--- NOTE | 2019-09-28 09:08 | PCM.PROG ---
Attending Provider: ATTENDING PROVIDER: Dr. TOSHA SHANNON DATE OF SERVICE: 09/28/19 SUBJECTIVE: This 79 year old /WHITE F was hospitalized 09/24/19 with acute gastroenteritis, acute bronchitis, and dehydration. The patient's acute gastroenteritis and dehydration has resolved. Bronchitis still persists. REVIEW OF SYSTEMS: CONSTITUTIONAL: No night sweats. No fatigue, malaise, lethargy. No fever or chills. HEENT: Eyes: No visual changes. No eye pain. No eye discharge. ENT: No runny nose. No epistaxis. No sinus pain. No odynophagia. No congestion. RESPIRATORY: Cough and congestion. No hemoptysis. No shortness of breath. CARDIOVASCULAR: No angina symptoms. No CHF symptoms. No atypical chest pain for CAD. No palpitations. No orthopnea.. GASTROINTESTINAL: No abdominal pain. No nausea or vomiting. No diarrhea or constipation. No hematemesis. No hematochezia. GENITOURINARY: No urgency. No frequency. No dysuria. No hematuria. No obstructive symptoms. No discharge. No pain. No significant abnormal bleeding. MUSCULOSKELETAL: No musculoskeletal pain; no joint swelling. NEUROLOGICAL: Awake, alert, oriented to time, place and person. No headache. No neck pain. No syncope. No seizures. No dizziness. PSYCHIATRIC: Not anxious. No depression. No suicidal thoughts. No homicidal thoughts. SKIN: No rash. No lesions. No wounds. ENDOCRINE: No unexplained weight loss. No weight gain. HEMATOLOGIC/LYMPHATIC: No anemia. No purpura. No petechiae. No prolonged or excessive bleeding. No palpable lymph nodes. PHYSICAL EXAMINATION: GENERAL: The patient is awake, alert and oriented, lying/sitting in bed in no distress. VITAL SIGNS: Temperature 98.0 F, Pulse 70, Respiratory Rate 22, BP 135/83, Pulse Ox 96% HEENT: Head normocephalic, atraumatic. Eyes: Extraocular muscles are intact. Pupils are equal, round and reactive to light and accommodation. Ears: No lesions. Nose appeared normal. Throat: No exudate or erythema. NECK: Supple. No JVD, no carotid bruit. No lymphadenopathy or thyromegaly. LUNGS: Decreased breath sounds, good air entry. Clear to auscultation. Percussion note normal. Chest symmetrical. HEART: S1, S2, no S3. No murmurs. No cyanosis or clubbing. No ascites. Pulses: Dorsalis pedis and posterior tibial pulses +1 to +2 both sides. ABDOMEN: Soft. Non-tender. Bowel sounds active. No CVA tenderness. No mass felt. EXTREMITIES: No edema. Full range of motion of all extremities, equal. NEUROLOGIC: No focal deficit. Cranial nerves II through XII are grossly intact. No headache, no double vision or headache. SKIN: Warm and dry. Intact. Turgor-normal. LYMPHATIC: No palpable lymph nodes/no lymphedema. MUSCULOSKELETAL: Normal joints with no swelling. Muscle tone is normal. LAB REVIEW: 09/28/19 04:38 09/28/19 04:38 09/28/19 04:38: Sodium 137.9, Potassium 4.13, Chloride 95.6 L, Carbon Dioxide 38.5 H, Anion Gap 7.93, BUN 32.4 H, Creatinine 0.76, Estimated GFR (MDRD) 74.00, BUN/Creatinine Ratio 42.63, Glucose 87.8, Calcium 9.59, Total Bilirubin 0.32, AST 25.7, ALT 13.7, Alkaline Phosphatase 70.6, Total Protein 6.58, Albumin 3.87, Globulin 2.71, Albumin/Globulin Ratio 1.42 09/28/19 04:38: WBC 9.72, RBC 4.29, Hgb 13.6, Hct 41.1, MCV 95.8, MCH 31.7 H, MCHC 33.1, RDW Coeff of [place] 13.2, Plt Count 277, Immature Gran % (Auto) 1.0, Neut % (Auto) 77.7 H, Lymph % (Auto) 15.0, [place] % (Auto) 6.1, Eos % (Auto) 0.0, Baso % (Auto) 0.2, Immature Gran # (Auto) 0.1, Neut # (Auto) 7.6 H, Lymph # (Auto) 1.5, [place] # (Auto) 0.6, Eos # (Auto) 0.0, Baso # (Auto) 0.0 ASSESSMENT: Please see below. 1. Acute gastroenteritis, dehydration resolved. 2. Acute bronchitis resolving. PLAN: 1. Continue antibiotics, steroids and nebs. 2. ABGs on room air. Plan and coordination of the patient's care discussed in the presence of News Operations Manager and nurse. CONDITION: Stable SCRIBED BY: TEO SHAH Physiotherapist'S Assistant scribed while in presence of service performed by Dr. TOSHA SHANNON on 09/28/19 ([id number])
[2019-09-28] MEDS: VITAMIN D PO SCH (20:40)
[2019-09-28] MEDS: CALCIUM 500 + VIT D 200 MG TABLET PO SCH (20:40)
[2019-09-28] MEDS: ASPIRIN CHEWABLE PO SCH (20:40)
[2019-09-28] MEDS: XANAX PO PRN (20:41)
[2019-09-28] MEDS: PLAVIX PO SCH (20:41)
[2019-09-28] MEDS: OMEGA-3 FISH OIL PO SCH (20:41)
[2019-09-28] MEDS: GLUCOSAMINE CHONDROITIN PO SCH (20:49)
[2019-09-28] MEDS: ALBUTEROL 0.083% NEB NEB PRN (21:50)
[2019-09-29] MEDS: XOPENEX 1.25 MG NEB SCH ×5 (00:10→23:20)
[2019-09-29] MEDS: PROAIR HFA (SINGLE PATIENT USE) IH PRN ×2 (03:57→05:59)
[2019-09-29 05:01] LABS: HEMATOCRIT 42.7 % (37.0-47.0)
[2019-09-29] MEDS: NITROSTAT SL PRN (07:14)
[2019-09-29] MEDS: DOXYCYCLINE HYCLATE PO SCH ×2 (08:31→20:44)
[2019-09-29] MEDS: DYAZIDE PO SCH (08:31)
[2019-09-29] MEDS: COREG PO SCH ×2 (08:31→17:38)
[2019-09-29] MEDS: NEURONTIN PO SCH ×2 (08:31→20:44)
[2019-09-29] MEDS: DECADRON 4 MG/ML SDV IM SCH (08:32)
[2019-09-29] MEDS: SYMBICORT 160-4.5 MCG INHALER IH SCH (08:33)
[2019-09-29] MEDS: FLUTICASONE FUROATE VILANTEROL IH SCH (08:33)
[2019-09-29] MEDS: PLAVIX PO SCH (20:44)
[2019-09-29] MEDS: OMEGA-3 FISH OIL PO SCH (20:44)
[2019-09-29] MEDS: VITAMIN D PO SCH (20:44)
[2019-09-29] MEDS: ASPIRIN CHEWABLE PO SCH (20:45)
[2019-09-29] MEDS: GLUCOSAMINE CHONDROITIN PO SCH (20:45)
[2019-09-29] MEDS: CALCIUM 500 + VIT D 200 MG TABLET PO SCH (20:45)
[2019-09-29] MEDS: XANAX PO PRN (21:49)
[2019-09-30] MEDS: XOPENEX 1.25 MG NEB SCH ×4 (04:50→23:05)
[2019-09-30] MEDS: NEURONTIN PO SCH ×2 (08:07→20:51)
[2019-09-30] MEDS: SYMBICORT 160-4.5 MCG INHALER IH SCH (08:07)
[2019-09-30] MEDS: DOXYCYCLINE HYCLATE PO SCH ×2 (08:08→20:51)
[2019-09-30] MEDS: COREG PO SCH ×2 (08:08→16:34)
[2019-09-30] MEDS: DECADRON 4 MG/ML SDV IM SCH (08:09)
[2019-09-30] MEDS: FLUTICASONE FUROATE VILANTEROL IH SCH (08:10)
[2019-09-30] MEDS ORDERED: VITAMIN B-12 SUBCUT SCH (09:00)
[2019-09-30] MEDS: NITROSTAT SL PRN (12:10)
[2019-09-30] MEDS: PROAIR HFA (SINGLE PATIENT USE) IH PRN ×2 (12:11→19:30)
[2019-09-30] MEDS: CALCIUM 500 + VIT D 200 MG TABLET PO SCH (20:50)
[2019-09-30] MEDS: ASPIRIN CHEWABLE PO SCH (20:50)
[2019-09-30] MEDS: VITAMIN D PO SCH (20:50)
[2019-09-30] MEDS: PLAVIX PO SCH (20:51)
[2019-09-30] MEDS: OMEGA-3 FISH OIL PO SCH (20:51)
[2019-09-30] MEDS: GLUCOSAMINE CHONDROITIN PO SCH (20:52)
[2019-09-30] MEDS: XANAX PO PRN (23:24)
[2019-10-01] MEDS: XOPENEX 1.25 MG NEB SCH ×2 (04:57→11:05)
[2019-10-01 05:17] VITALS: BP 146/88; TEMP 98.1
[2019-10-01 05:49] LABS: HEMATOCRIT 40.8 % (37.0-47.0)
[2019-10-01] MEDS: FLUTICASONE FUROATE VILANTEROL IH SCH (08:23)
--- NOTE | 2019-10-01 08:31 | PCM.PROG ---
Attending Provider: ATTENDING PROVIDER: Dr. TOSHA SHANNON DATE OF SERVICE: 10/01/19 SUBJECTIVE: This 79 year old /WHITE F was hospitalized 09/24/19 with Acute gastroenteritis that has resolved. She has been up and about. Dehydration has resolved. REVIEW OF SYSTEMS: CONSTITUTIONAL: No night sweats. No fatigue, malaise, lethargy. No fever or chills. HEENT: Eyes: No visual changes. No eye pain. No eye discharge. ENT: No runny nose. No epistaxis. No sinus pain. No odynophagia. No congestion. RESPIRATORY: Mild cough, no congestion. No hemoptysis. No shortness of breath. CARDIOVASCULAR: No angina symptoms. No CHF symptoms. No atypical chest pain for CAD. No palpitations. No orthopnea.. GASTROINTESTINAL: No abdominal pain. No nausea or vomiting. No diarrhea or constipation. No hematemesis. No hematochezia. GENITOURINARY: No urgency. No frequency. No dysuria. No hematuria. No obstructive symptoms. No discharge. No pain. No significant abnormal bleeding. MUSCULOSKELETAL: No musculoskeletal pain; no joint swelling. NEUROLOGICAL: Awake, alert, oriented to time, place and person. No headache. No neck pain. No syncope. No seizures. No dizziness. PSYCHIATRIC: Not anxious. No depression. No suicidal thoughts. No homicidal thoughts. SKIN: No rash. No lesions. No wounds. ENDOCRINE: No unexplained weight loss. No weight gain. HEMATOLOGIC/LYMPHATIC: No anemia. No purpura. No petechiae. No prolonged or excessive bleeding. No palpable lymph nodes. PHYSICAL EXAMINATION: GENERAL: The patient is awake, alert and oriented, lying in bed in no distress. VITAL SIGNS: Temperature 98.1 F, Pulse 84, Respiratory Rate 20, BP 146/88, Pulse Ox 97% HEENT: Head normocephalic, atraumatic. Eyes: Extraocular muscles are intact. Pupils are equal, round and reactive to light and accommodation. Ears: No lesions. Nose appeared normal. Throat: No exudate or erythema. NECK: Supple. No JVD, no carotid bruit. No lymphadenopathy or thyromegaly. LUNGS: Good air entry with harsh breath sounds. Clear to auscultation. Percussion note normal. Chest symmetrical. HEART: S1, S2, no S3. No murmurs. No cyanosis or clubbing. No ascites. Pulses: Dorsalis pedis and posterior tibial pulses +1 to +2 both sides. ABDOMEN: Soft. Non-tender. Bowel sounds active. No CVA tenderness. No mass felt. EXTREMITIES: No edema. Full range of motion of all extremities, equal. NEUROLOGIC: No focal deficit. Cranial nerves II through XII are grossly intact. No headache, no double vision or headache. SKIN: Warm and dry. Intact. Turgor-normal. LYMPHATIC: No palpable lymph nodes/no lymphedema. MUSCULOSKELETAL: Normal joints with no swelling. Muscle tone is normal. LAB REVIEW: 10/01/19 05:30 10/01/19 05:30 10/01/19 05:30: Sodium 136.9, Potassium 4.27, Chloride 94.5 L, Carbon Dioxide 38.7 H, Anion Gap 7.97, BUN 38.1 H, Creatinine 0.81, Estimated GFR (MDRD) 69.00, BUN/Creatinine Ratio 47.03, Glucose 90.6, Calcium 9.31, Total Bilirubin 0.62, AST 38.0 H, ALT 13.5, Alkaline Phosphatase 64.4, Total Protein 6.06 L, Albumin 3.53, Globulin 2.53, Albumin/Globulin Ratio 1.39 10/01/19 05:30: WBC 11.33 H, RBC 4.30, Hgb 13.5, Hct 40.8, MCV 94.9, MCH 31.4 H, MCHC 33.1, RDW Coeff of [place] 13.2, Plt Count 255, Immature Gran % (Auto) 0.9, Neut % (Auto) 81.8 H, Lymph % (Auto) 10.6, [place] % (Auto) 6.5, Eos % (Auto) 0.0, Baso % (Auto) 0.2, Immature Gran # (Auto) 0.1, Neut # (Auto) 9.3 H, Lymph # (Auto) 1.2, [place] # (Auto) 0.7, Eos # (Auto) 0.0, Baso # (Auto) 0.0 ASSESSMENT: Please see below. 1. Acute gastroenteritis 2. Dehydration resolved 3. Bronchitis resolved 4. Coronary artery bypass PLAN: 1. Discharge home 2. Nystatin for possible thrush 3. Doxycyclin 50mg twice a day for 5 days. 4. Steroids as an outpatient. Plan and coordination of the patient's care discussed in the presence of Brewmaster and nurse. SCRIBED BY: ISAÍAS JACKSON Television Producer scribed while in presence of service performed by Dr. TOSHA SHANNON on 10/01/19 ([id number])
[2019-10-01] MEDS: COREG PO SCH (09:56)
[2019-10-01] MEDS: SYMBICORT 160-4.5 MCG INHALER IH SCH (09:56)
[2019-10-01] MEDS: NEURONTIN PO SCH (09:57)
[2019-10-01] MEDS: DOXYCYCLINE HYCLATE PO SCH (09:57)
[2019-10-01] MEDS: DECADRON 4 MG/ML SDV IM SCH (09:57)
[2019-10-01] MEDS: NYSTATIN ORAL SUSP PO SCH ×2 (09:58→09:59)
--- NOTE | 2019-10-01 11:25 | CM.DICTOOL ---
ADMISSION: 09/24/19 14:01 DISCHARGE: OCTOBER 01, 2019 DATE OF SERVICE: 10/01/19 FINAL DIAGNOSIS ACUTE GASTROENTERITIS, RESOLVED ACUTE BRONCHITIS DEHYDRATION, RESOLVED RIGHT SIDED PLEURITIC PAIN COPD HYPERTENSION CAD WITH STENT APPLICATION (2009) DYSLIPIDEMIA RENAL ARTERY STENOSIS, LEFT GREATER THAN RIGHT BASAL CELL CARCINOMA (DRProsper CASE 09/2019) ANEMIA B12 DEFICIENCY GENERALIZED ANXIETY DISORDER HISTORY OF TOBACCO USE (30 YEARS) OSTEOARTHRITIS OSTEOPOROSIS HEART CATH 03/2018 DR. HUDSON (NORMAL) CABG, 1998 RIGHT SHOULDER PFT (2018) SEVERE COPD STRESS SESTAMIBI (2018) POSITIVE FOR FOCAL AREA OF REVERSIBLE ISCHEMIA INVOLVING MID ANTERIOR WALL AND LEFT VENTRICLE APEX ECHOCARDIOGRAM: 2019 BORDERLINE LVH ENLARGED LEFT ATRIAL AND RIGHT VENTRICLE CAVITIES NORMAL LV CONTRACTILITY NORMAL VALVES LAST VITALS Temp Pulse Resp BP Pulse Ox 98.1 F 84 20 146/88 H 94 L 10/01/19 05:15 10/01/19 05:15 10/01/19 05:15 10/01/19 05:15 10/01/19 10:00 TAKE THESE MEDICATIONS AT HOME Albuterol Sulfate (Albuterol 0.083% Neb) 2.5 mg NEB RTQ4H PRN PRN Reason: Wheezing Last Admin: 09/28/19 21:50 Dose: 2.5 mg Documented by: Albuterol Sulfate (Proair Hfa) 2 puff IH Q4HR PRN (RX GIVEN) PRN Reason: Bronchodialation Last Admin: 09/30/19 19:30 Dose: 2 puff Documented by: Alprazolam (Xanax) 0.25 mg PO TID PRN PRN Reason: Anxiety Last Admin: 09/30/19 23:24 Dose: 0.25 mg Documented by: Aspirin (Aspirin Chewable) 81 mg PO BEDTIME [facility] Last Admin: 09/30/19 20:50 Dose: 81 mg Documented by: Budesonide/Formoterol Fumarate (Symbicort 160-4.5 Mcg Inhaler) 2 puff IH DAILY [facility] Last Admin: 10/01/19 09:56 Dose: 2 puff Documented by: Calcium/Vitamin D (Calcium 500 + Vit D 200 Mg Tablet) 1 each PO BEDTIME [facility] Last Admin: 09/30/19 20:50 Dose: 1 each Documented by: Carvedilol (Coreg) 12.5 mg PO BIDWM [facility] Last Admin: 10/01/19 09:56 Dose: 12.5 mg Documented by: Cholecalciferol (Vitamin D) 1,000 unit PO BEDTIME [facility] Last Admin: 09/30/19 20:50 Dose: 1,000 unit Documented by: Clopidogrel Bisulfate (Plavix) 75 mg PO BEDTIME [facility] Last Admin: 09/30/19 20:51 Dose: 75 mg Documented by: Cyanocobalamin (Vitamin B-12) 1,000 mcg SUBCUT MONTHLY [facility] Last Admin: Fish Oil ([place]-3 Fish Oil) 1,000 mg PO BEDTIME [facility] Last Admin: 09/30/19 20:51 Dose: 1,000 mg Documented by: Gabapentin (Neurontin) 600 mg PO BID [facility] Last Admin: 10/01/19 09:57 Dose: 600 mg Documented by: Nitroglycerin (Nitrostat) 0.4 mg SL Q5MIN X 3 DOSES PRN PRN Reason: Chest Pain Last Admin: 09/30/19 12:10 Dose: 0.4 mg Documented by: Non-Formulary Medication (Fluticasone Furoate-Vilanterol [Breo Ellipta]) 1 each IH DAILY [facility] Last Admin: 10/01/19 08:23 Dose: Not Given Documented by: Non-Formulary Medication (Glucosamine-Chondroitin [Osteo Bi-Flex]) 1 each PO BEDTIME [facility] Last Admin: 09/30/19 20:52 Dose: Not Given Documented by: Triamterene/HCTZ (Dyazide) 1 cap PO TuThSa@0900 [facility] Last Admin: 09/29/19 08:31 Dose: 1 cap Documented by: ALLERGIES aspirin [From Empirin W/Codeine] Adverse Reaction (Verified 04/26/16 11:09) atorvastatin calcium [From Lipitor] Adverse Reaction (Verified 04/26/16 11:09) codeine Adverse Reaction (Verified 04/26/16 11:09) codeine phosphate [From Empirin W/Codeine] Adverse Reaction (Verified 04/26/16 11:09) Iodinated Contrast Media Adverse Reaction (Verified 09/25/19 11:37) levofloxacin [From Levaquin] Adverse Reaction (Verified 04/26/16 11:09) Penicillins Adverse Reaction (Verified 04/26/16 11:09) pentazocine lactate [From Talwin] Adverse Reaction (Verified 04/26/16 11:09) Sulfa (Sulfonamide Antibiotics) Adverse Reaction (Verified 04/26/16 11:09) DISCONTINUED MEDICATIONS NONE NEW PRESCRIPTIONS: DOXYCYCLINE 50 MG BID FOR 5 DAYS PREDNISONE 10 MG DAILY FOR 5 DAYS NYSTATIN SUSPENSION GARGLE 1 TEASPOON QID FOR 5 DAYS PROAIR HFA 2 PUFFS EVERY 4 HOURS PRN SHORTNESS OF AIR/WHEEZING USE SYMBICORT INHALER (HOSPITAL SUPPLY) 2 PUFFS DAILY SMOKING: NOT APPLICABLE DISEASE SPECIFIC EDUCATION: USE OF OXYGEN USE OF INHALER CONTINUATION OF NEBULIZER TREATMENTS USE OF ORAL STEROIDS AND RISK OF GI IRRITATION, CATARACT FORMATION, AVASCULAR NECROSIS LAB REVIEW: 10/01/19 05:30 10/01/19 05:30 10/01/19 05:30: Sodium 136.9, Potassium 4.27, Chloride 94.5 L, Carbon Dioxide 38.7 H, Anion Gap 7.97, BUN 38.1 H, Creatinine 0.81, Estimated GFR (MDRD) 69.00, BUN/Creatinine Ratio 47.03, Glucose 90.6, Calcium 9.31, Total Bilirubin 0.62, AST 38.0 H, ALT 13.5, Alkaline Phosphatase 64.4, Total Protein 6.06 L, Albumin 3.53, Globulin 2.53, Albumin/Globulin Ratio 1.39 10/01/19 05:30: WBC 11.33 H, RBC 4.30, Hgb 13.5, Hct 40.8, MCV 94.9, MCH 31.4 H, MCHC 33.1, RDW Coeff of [place] 13.2, Plt Count 255, Immature Gran % (Auto) 0.9, Neut % (Auto) 81.8 H, Lymph % (Auto) 10.6, [place] % (Auto) 6.5, Eos % (Auto) 0.0, Baso % (Auto) 0.2, Immature Gran # (Auto) 0.1, Neut # (Auto) 9.3 H, Lymph # (Auto) 1.2, [place] # (Auto) 0.7, Eos # (Auto) 0.0, Baso # (Auto) 0.0 PLAN: DISCHARGE HOME DIET: RESUME TOLERATED ACTIVITY: GRADUALLY RESUME TOLERATED USE OXYGEN AT 2 LITERS CONTINUOUSLY FOR SHORTNESS OF AIR AT REST AND WITH EXERTION. CONTINUE TO USE NEBULIZER TREATMENTS (ALBUTEROL) AT LEAST 4 TIMES A DAY REGULARLY UNTIL SEEN BY DR. SHANNON AN APPOINTMENT IS SCHEDULED WITH DR. SHANNON/JORGE LUIS PEREIRA APRN ON September AT 3 PM CODE STATUS: DNR PER PATIENT REQUEST MS. ANAYA IS ALERT AND ORIENTED X 4. SHE LIVES ALONE AND IS AGREEABLE TO PLANS FOR DISCHARGE HOME TODAY. HER DAUGHTER, ALAYNA IS AWARE OF PLANS FOR DISCHARGE AND IS ALSO AGREEABLE. MS. ANAYA IS INDEPENDENT WITH ACTIVITIES OF DAILY LIVING. SHE DOES NOT REQUIRE STAFF ASSISTANCE OR ASSISTIVE DEVICE WITH AMBULATION. SHE UTILIZES OXYGEN AT 2 LITERS WITH ACTIVITY DUE TO OXYGEN SATURATION WITH EXERTION AT 87% ON ROOM AIR. MS. ANAYA REPORTS SHE HAS A NEBULIZER AT HOME FOR USE WITH BREATHING TREATMENTS. MS. ANAYA IS ABLE TO FEED HERSELF. MEAL INTAKES ARE GOOD AT 30-100%. MS. ANAYA IS CONTINENT OF BOWEL AND BLADDER. MS. ANAYA WILL REQUIRE OXYGEN AT DISCHARGE. SHE HAS SELECTED [facility] TO SUPPLY HER OXYGEN; CONCENTRATOR AND PORTABILITY. HYDRATION STATUS HAS IMPROVED. SKIN IS INTACT AND FREE OF SKIN BREAKDOWN. MD ROGERIO ALVAREZ APRN
--- NOTE | 2019-10-02 08:53 | PN ---
DATE OF SERVICE: 09/29/2019 SUBJECTIVE: 79 year old white female hospitalized with acute gastroenteritis and acute bronchitis with dehydration. The patient's condition has steadily improved. The patient's bronchitis still persists but the coughing is much less. She is feeling some what better. REVIEW OF SYSTEMS: CONSTITUTIONAL: No night sweats. No fatigue, malaise, lethargy. No fever or chills. HEENT: Eyes: No visual changes. No eye pain. No eye discharge. ENT: No runny nose. No epistaxis. No sinus pain. No sore throat. No odynophagia. No congestion. RESPIRATORY: Cough, Congestion. No hemoptysis. No shortness of breath. CARDIOVASCULAR: No angina symptoms. No CHF symptoms. No atypical chest pain for CAD. No palpitations. No PND. No orthopnea. GASTROINTESTINAL: No abdominal pain. No nausea or vomiting. No diarrhea or constipation. No hematemesis. No hematochezia. Appetite has steadily improved. GENITOURINARY: No urgency. No frequency. No dysuria. No hematuria. No obstructive symptoms. No discharge. No pain. No significant abnormal bleeding. MUSCULOSKELETAL: No musculoskeletal pain; no joint swelling. NEUROLOGICAL: No headache. No neck pain. No syncope. No seizures. No dizziness. PSYCHIATRIC: Not anxious. No depression. No suicidal thoughts. No homicidal thoughts. SKIN: No rash. No lesions. No wounds. ENDOCRINE: No unexplained weight loss. No weight gain. HEMATOLOGIC/LYMPHATIC: No anemia. No purpura. No petechiae. No prolonged or excessive bleeding. No palpable lymph nodes. PHYSICAL EXAMINATION: VITAL SIGNS: Temperature 97.9, pulse 78, respiratory rate 20, blood pressure 150/80 and pulse ox 97% on 2 liters. HEENT: Head normocephalic, atraumatic. Eyes: Extraocular muscles are intact. Pupils are equal, round and reactive to light and accommodation. Ears: No lesions. Nose appeared normal. Throat: No exudate or erythema. NECK: Supple. No JVD, no carotid bruit. No lymphadenopathy or thyromegaly. LUNGS: Decreased breath sounds with mild expiratory wheeze. Clear to auscultation. Percussion note normal. Chest symmetrical. HEART: S1, S2, no S3. No murmurs. No cyanosis or clubbing. No ascites. Pulses: Dorsalis pedis and posterior tibial pulses +1 to +2 bilaterally. ABDOMEN: Soft. Nontender. Bowel sounds active. No CVA tenderness. No mass felt. EXTREMITIES: No edema. Full range of motion of all extremities, equal. NEUROLOGIC: No focal deficit. Cranial nerves II through XII are grossly intact. No headache, no double vision or headache. SKIN: Not dry. Intact. Turgor - normal. LYMPHATIC: No palpable lymph nodes/no lymphedema. MUSCULOSKELETAL: Normal joints with no swelling. Muscle tone is normal. LABS: Hgb 14, hct 42, WBC 10,000 normal differential, creatinine 0.8, BUN 42, potassium 4.1 ASSESSMENT: 1. Acute bronchitis with severe chronic lung disease seems to be improving with NEBS, Antibiotics and steroids. 2. Gastroenteritis and dehydration has resolved. Still some dehydration judging by the patient's creatinine and BUN ratio that persists. TIME SPENT: More than 30 minutes. Plan and coordination of the patient's care discussed in the presence of nurse. FUAD
--- NOTE | 2019-10-03 09:07 | PN ---
DATE OF SERVICE: 09/30/2019 SUBJECTIVE: 79 year old white female hospitalized with Influenza A with acute gastroenteritis, acute bronchitis and dehydration. The patient's condition has steadily improved. Dehydration and gastroenteritis has resolved. Bronchitis improving. REVIEW OF SYSTEMS: CONSTITUTIONAL: No night sweats. No fatigue, malaise, lethargy. No fever or chills. HEENT: Eyes: No visual changes. No eye pain. No eye discharge. ENT: No runny nose. No epistaxis. No sinus pain. No sore throat. No odynophagia. No congestion. RESPIRATORY: Mild cough, no congestion. No hemoptysis. No shortness of breath. CARDIOVASCULAR: No angina symptoms. No CHF symptoms. No atypical chest pain for CAD. No palpitations. No PND. No orthopnea. GASTROINTESTINAL: No abdominal pain. No nausea or vomiting. No diarrhea or constipation. No hematemesis. No hematochezia. Appetite has improved. GENITOURINARY: No urgency. No frequency. No dysuria. No hematuria. No obstructive symptoms. No discharge. No pain. No significant abnormal bleeding. MUSCULOSKELETAL: No musculoskeletal pain; no joint swelling. NEUROLOGICAL: No headache. No neck pain. No syncope. No seizures. No dizziness. PSYCHIATRIC: Not anxious. No depression. No suicidal thoughts. No homicidal thoughts. SKIN: No rash. No lesions. No wounds. ENDOCRINE: No unexplained weight loss. No weight gain. HEMATOLOGIC/LYMPHATIC: No anemia. No purpura. No petechiae. No prolonged or excessive bleeding. No palpable lymph nodes. PHYSICAL EXAMINATION: VITAL SIGNS: Temperature 96.6, pulse 62, respiratory rate 20, blood pressure 156/86 and pulse ox 100% on 2 liters. HEENT: Head normocephalic, atraumatic. Eyes: Extraocular muscles are intact. Pupils are equal, round and reactive to light and accommodation. Ears: No lesions. Nose appeared normal. Throat: No exudate or erythema. NECK: Supple. No JVD, no carotid bruit. No lymphadenopathy or thyromegaly. LUNGS: Decreased breath sounds with mild expiratory wheeze. Clear to auscultation. Percussion note normal. Chest symmetrical. HEART: S1, S2, no S3. No murmurs. No cyanosis or clubbing. No ascites. Pulses: Dorsalis pedis and posterior tibial pulses +1 to +2 bilaterally. ABDOMEN: Soft. Nontender. Bowel sounds active. No CVA tenderness. No mass felt. EXTREMITIES: No edema. Full range of motion of all extremities, equal. NEUROLOGIC: No focal deficit. Cranial nerves II through XII are grossly intact. No headache, no double vision or headache. SKIN: Not dry. Intact. Turgor - normal. LYMPHATIC: No palpable lymph nodes/no lymphedema. MUSCULOSKELETAL: Normal joints with no swelling. Muscle tone is normal. LABS: Hgb 12.6, hct 38, WBC 9,400 normal differential, creatinine 0.8, BUN 43, potassium 4.1 ASSESSMENT: 1. Acute gastroenteritis, resolved 2. Dehydration, resolved 3. Bronchitis, seems to be improving PLAN: 1. Continue antibiotics, steroids and NEBS 2. The patient is advised to join cardiopulmonary rehab. TIME SPENT: More than 30 minutes. Plan and coordination of the patient's care discussed in the presence of nurse. FUAD
--- NOTE | 2019-10-03 11:27 | PN ---
09/24/2019: Level 5 09/25/2019: Intermediate 09/26/2019: Intermediate 09/27/2019: Intermediate 09/28/2019: Intermediate 09/29/2019: Intermediate 09/30/2019: Intermediate 10/01/2019: D as in discharge MTDD
--- NOTE | 2019-10-03 11:27 | DS ---
DATE OF SERVICE: 10/01/2019 FINAL DIAGNOSIS: 1. ACUTE GASTROENTERITIS, RESOLVED 2. ACUTE BRONCHITIS 3. DEHYDRATION, RESOLVED 4. RIGHT SIDED PLEURITIC PAIN 5. COPD 6. HYPERTENSION 7. CAD WITH STENT APPLICATION (2009) 8. DYSLIPIDEMIA 9. RENAL ARTERY STENOSIS, LEFT GREATER THAN RIGHT 10.BASAL CELL CARCINOMA (DRProsper CASE 09/2019) 11.ANEMIA 12.B12 DEFICIENCY 13.GENERALIZED ANXIETY DISORDER 14.HISTORY OF TOBACCO USE (30 YEARS) 15.OSTEOARTHRITIS 16.OSTEOPOROSIS 17.HEART CATH 03/2018 DR. HUDSON (NORMAL) 18.CABG, 1997 19.RIGHT SHOULDER 20.PFT (2017) SEVERE COPD 21.STRESS SESTAMIBI (2017) 22.POSITIVE FOR FOCAL AREA OF REVERSIBLE ISCHEMIA 23.INVOLVING MID ANTERIOR WALL AND LEFT VENTRICLE APEX 24.ECHOCARDIOGRAM: 2019 25.BORDERLINE LVH 26.ENLARGED LEFT ATRIAL AND RIGHT VENTRICLE CAVITIES 27.NORMAL LV CONTRACTILITY 28.NORMAL VALVES LAST VITALS: Temp Pulse Resp BP Pulse Ox 98.1 F 84 20 146/88 H 94 L 10/01/19 05:15 10/01/19 05:15 10/01/19 05:15 10/01/19 05:15 10/01/19 10:00 DISCHARGE INSTRUCTIONS: DISCHARGE HOME. CONTINUE TO USE NEBULIZER TREATMENTS (ALBUTEROL) AT LEAST 4 TIMES A DAY REGULARLY UNTIL SEEN BY DR. SHANNON. AN APPOINTMENT IS SCHEDULED WITH DR. SHANNON/JORGE LUIS PEREIRA APRN ON September AT 3 PM. CODE STATUS: DNR PER PATIENT REQUEST. TAKE THESE MEDICATIONS AT HOME: Albuterol Sulfate (Albuterol 0.083% Neb) 2.5 mg NEB RTQ4H PRN PRN Reason: Wheezing Last Admin: 09/28/19 21:50 Dose: 2.5 mg Documented by: Albuterol Sulfate (Proair Hfa) 2 puff IH Q4HR PRN (RX GIVEN) PRN Reason: Bronchodialation Last Admin: 09/30/19 19:30 Dose: 2 puff Documented by: Alprazolam (Xanax) 0.25 mg PO TID PRN PRN Reason: Anxiety Last Admin: 09/30/19 23:24 Dose: 0.25 mg Documented by: Aspirin (Aspirin Chewable) 81 mg PO BEDTIME [facility]ARY Last Admin: 09/30/19 20:50 Dose: 81 mg Documented by: Budesonide/Formoterol Fumarate (Symbicort 160-4.5 Mcg Inhaler) 2 puff IH DAILY [facility] Last Admin: 10/01/19 09:56 Dose: 2 puff Documented by: Calcium/Vitamin D (Calcium 500 + Vit D 200 Mg Tablet) 1 each PO BEDTIME [facility] Last Admin: 09/30/19 20:50 Dose: 1 each Documented by: Carvedilol (Coreg) 12.5 mg PO BIDWM [facility] Last Admin: 10/01/19 09:56 Dose: 12.5 mg Documented by: Cholecalciferol (Vitamin D) 1,000 unit PO BEDTIME [facility] Last Admin: 09/30/19 20:50 Dose: 1,000 unit Documented by: Clopidogrel Bisulfate (Plavix) 75 mg PO BEDTIME [facility] Last Admin: 09/30/19 20:51 Dose: 75 mg Documented by: Cyanocobalamin (Vitamin B-12) 1,000 mcg SUBCUT MONTHLY [facility] Last Admin: Fish Oil ([place]-3 Fish Oil) 1,000 mg PO BEDTIME [facility] Last Admin: 09/30/19 20:51 Dose: 1,000 mg Documented by: Gabapentin (Neurontin) 600 mg PO BID [facility] Last Admin: 10/01/19 09:57 Dose: 600 mg Documented by: Nitroglycerin (Nitrostat) 0.4 mg SL Q5MIN X 3 DOSES PRN PRN Reason: Chest Pain Last Admin: 09/30/19 12:10 Dose: 0.4 mg Documented by: Non-Formulary Medication (Fluticasone Furoate-Vilanterol [Breo Ellipta]) 1 each IH DAILY [facility] Last Admin: 10/01/19 08:23 Dose: Not Given Documented by: Non-Formulary Medication (Glucosamine-Chondroitin [Osteo Bi-Flex]) 1 each PO BEDTIME [facility] Last Admin: 09/30/19 20:52 Dose: Not Given Documented by: Triamterene/HCTZ (Dyazide) 1 cap PO TuThSa@0900 [facility] Last Admin: 09/29/19 08:31 Dose: 1 cap Documented by: ALLERGIES: aspirin [From Empirin W/Codeine] Adverse Reaction (Verified 04/26/16 11:09) atorvastatin calcium [From Lipitor] Adverse Reaction (Verified 04/26/16 11:09) codeine Adverse Reaction (Verified 04/26/16 11:09) codeine phosphate [From Empirin W/Codeine] Adverse Reaction (Verified 04/26/16 11:09) Iodinated Contrast Media Adverse Reaction (Verified 09/25/19 11:37) levofloxacin [From Levaquin] Adverse Reaction (Verified 04/26/16 11:09) Penicillins Adverse Reaction (Verified 04/26/16 11:09) pentazocine lactate [From Talwin] Adverse Reaction (Verified 04/26/16 11:09) Sulfa (Sulfonamide Antibiotics) Adverse Reaction (Verified 04/26/16 11:09) DISCONTINUED MEDICATIONS: NONE NEW PRESCRIPTIONS: DOXYCYCLINE 50 MG BID FOR 5 DAYS PREDNISONE 10 MG DAILY FOR 5 DAYS NYSTATIN SUSPENSION GARGLE 1 TEASPOON QID FOR 5 DAYS PROAIR HFA 2 PUFFS EVERY 4 HOURS PRN SHORTNESS OF AIR/WHEEZING USE SYMBICORT INHALER (HOSPITAL SUPPLY) 2 PUFFS DAILY SMOKING: NOT APPLICABLE DISEASE SPECIFIC EDUCATION: USE OF OXYGEN USE OF INHALER CONTINUATION OF NEBULIZER TREATMENTS USE OF ORAL STEROIDS AND RISK OF GI IRRITATION, CATARACT FORMATION, AVASCULAR NECROSIS LAB REVIEW: 10/01/19 05:30 10/01/19 05:30 10/01/19 05:30: Sodium 136.9, Potassium 4.27, Chloride 94.5 L, Carbon Dioxide 38.7 H, Anion Gap 7.97, BUN 38.1 H, Creatinine 0.81, Estimated GFR (MDRD) 69.00, BUN/Creatinine Ratio 47.03, Glucose 90.6, Calcium 9.31, Total Bilirubin 0.62, AST 38.0 H, ALT 13.5, Alkaline Phosphatase 64.4, Total Protein 6.06 L, Albumin 3.53, Globulin 2.53, Albumin/Globulin Ratio 1.39 10/01/19 05:30: WBC 11.33 H, RBC 4.30, Hgb 13.5, Hct 40.8, MCV 94.9, MCH 31.4 H, MCHC 33.1, RDW Coeff of [place]uero[place] 13.2, Plt Count 255, Immature Gran % (Auto) 0.9, Neut % (Auto) 81.8 H, Lymph % (Auto) 10.6, [place] % (Auto) 6.5, Eos % (Auto) 0.0, Baso % (Auto) 0.2, Immature Gran # (Auto) 0.1, Neut # (Auto) 9.3 H, Lymph # (Auto) 1.2, [place] # (Auto) 0.7, Eos # (Auto) 0.0, Baso # (Auto) 0.0 DIET: RESUME TOLERATED ACTIVITY: GRADUALLY RESUME TOLERATED USE OXYGEN AT 2 LITERS CONTINUOUSLY FOR SHORTNESS OF AIR AT REST AND WITH EXERTION. HOSPITAL COURSE: 79 year old white female hospitalized with acute gastroenteritis type of symptoms. The patient also had dehydration with acute bronchitis. The patient was treated with symptomatic treatment for acute gastroenteritis with Zofran. She was started on steroids, NEBS treatment and Doxycycline. The patient's condition has slowly improved. The wheezing has practically subsided. Dehydration has resolved. She is up and about doing much better. There is no symptoms of CHF or coronary insufficiency. Her echo showed practically normal LV contractility. The patient has severe chronic lung disease. The patient will PFT done as an outpatient in the office. The patient was discharged on Doxycycline and Steroids. She was advised to continue her inhalers. She needs to get Breo samples from the office which we don't have. She was stared on Symbicort in the hospital and we are going to continue which has helped her some. TIME SPENT: More than 60 minutes. DIMASD
--- NOTE | 2019-10-03 13:24 | PN ---
09/28/2019: Level 5 09/29/2019: Intermediate 09/30/2019: Intermediate 10/01/2019: D as in discharge MTDD
[2019-10-05] MEDS ORDERED: NYSTATIN ORAL SUSP PO SCH (10:30)
== END 2019-10-01 12:25 | disposition home or self-care (01) | DRG 392 ==
LOC: MEDSURG B 14:01
PROVIDERS: ADMIT Internal Medicine; ATTEND Internal Medicine

== ENCOUNTER 2021-11-30 10:40 | Inpatient (IN) ==
--- NOTE | 2021-11-30 10:51 | ED.PDOC ---
General ED Provider: Dr. FELY KING Chief Complaint: Nausea/Vomiting Stated Complaint: nausea and vomiting for a few days, no fever, no diarrhea, DNR, she has lung cancer with liver and ? colon mets, supposed to start chemo tomorrow in [place], has decided that she is not going to pursue having any cancer treatment Time Seen by Provider: 11/30/21 10:50 Mode of Arrival: Walk-In Information Source: Patient Exam Limitations: No limitations Primary Care Provider: TOSHA SHANNON Nursing and Triage Documentation Reviewed and Agree: Yes Does patient meet sepsis criteria?: No System Inflammatory Response Syndrome: Not Applicable Sepsis Protocol: For patient's 13 years and over: Temp is 96.8 and below OR 101 and greater Pulse >90 BPM Resp >20/minute Acutely Altered Mental Status Are patient's symptoms suggestive of a new infection, such as: -Pneumonia -Skin, Soft Tissue -Endocarditis -UTI -Bone, Joint Infection -Implantable Device -Acute Abdominal Infection -Wound Infection -Meningitis -Blood Stream Catheter Infection -Unknown GI Complaint Exam Vomiting/Diarrhea Complaint/Exam Onset/Duration: few d Symptoms Are: Still present Episodes of Vomiting over last 24 Hours: 4 Episodes of Diarrhea Over Last 24 Hours: 0 Initial Severity: Mild Current Severity: Moderate Character of Vomiting: Reports Non-bilious Aggravating: Reports Food Alleviating: Reports None Associated Signs and Symptoms: Denies Dizziness, Light-headedness, Melena, Hematemesis, Fever, Abdominal pain or Cramping Non-GI Risk Factors: Reports None Surgical Obstruction Risk Factors: Reports None Related Surgical History: Reports None Abdominal Findings: Present Other (lower abdominal tenderness) Kussmaul Respirations Present: No Review of Systems Review Of Systems Constitutional: Reports Malaise and Weakness Eyes: Reports No symptoms Ears, Nose, Mouth, Throat: Reports No symptoms Respiratory: Reports No symptoms Cardiac: Reports No symptoms GI: Reports Abdominal pain and Constipated : Reports No symptoms Musculoskeletal: Reports No symptoms Skin: Reports No symptoms Neurological: Reports No symptoms Endocrine: Reports No symptoms Hematologic/Lymphatic: Reports No symptoms All Other Systems: Reviewed and Negative [facility] Medical History COPD (chronic obstructive pulmonary disease) Fracture dislocation of ankle joint Hyperlipidemia Radial fracture Rib fracture Tibia fracture Family History (Updated 11/30/21 @ 16:11 by NAKITA LING RN) Other No known health problems Social History Smoking and tobacco status: Former smoker Tobacco: How many years used: 30 Female Reproductive History Menstrual Hx Hysterectomy: No Hx Tubal Ligation: Yes Date of menopause: 08/01/79 Physical Exam Physical Exam Appearance: Reports Ill-appearing Ill-appearing: Mild Pain Distress: Moderate Eyes: Reports JACKELYN ENT: Reports Oropharynx normal Neck: Supple Respiratory: Reports Airway patent and Breath sounds clear Cardiovascular: Reports RRR and Pulses normal GI/: Reports Soft and Tender (lower abdomen) Musculoskeletal: Reports Normal strength and ROM intact Skin: Reports Warm and Dry Neurological: Reports Sensation intact, Motor intact and Alert Psychiatric: Reports Affect appropriate and Mood appropriate Interpretation EKG Interpretation Time of EKG #1: 11:23 Rate: Normal Rhythm: Sinus Ectopy: None [place]: NL ST Segment: Normal Interpretation: No acute changes Physician Notification Case Discussed Physician Notified: Dr. Shannon Comments: admit since patient does not want to pursue cancer tx Critical Care Note Critical Care Note Total Critical Care Time (mins): 0 Course Course Hematology/Chemistry: 11/30/21 11:30 11/30/21 11:30 Orders, Labs, Meds: Lab Review 11/30/21 11/30/21 11/30/21 11:30 11:30 12:30 WBC 7.30 RBC 4.39 Hgb 13.7 Hct 39.7 MCV 90.4 MCH 31.2 H MCHC 34.5 RDW Coeff of Figuero[place] 13.9 Plt Count 156 Immature Gran % (Auto) 0.7 Neut % (Auto) 80.3 H Lymph % (Auto) 10.5 [place] % (Auto) 8.1 Eos % (Auto) 0.1 Baso % (Auto) 0.3 Neut # (Auto) 5.9 Lymph # (Auto) 0.8 [place] # (Auto) 0.6 Eos # (Auto) 0.0 Baso # (Auto) 0.0 Immature Gran # (Auto) 0.1 Sodium 124.1 L Potassium 4.13 Chloride 86.5 L Carbon Dioxide 29.9 Anion Gap 11.83 BUN 21.9 H Creatinine 0.95 Estimated GFR (MDRD) 57.00 BUN/Creatinine Ratio 23.05 Glucose 89.4 Calcium 8.60 Total Bilirubin 1.09 AST 59.1 H ALT 35.2 H Alkaline Phosphatase 141.7 H Troponin I < 0.012 Total Protein 6.13 L Albumin 3.69 Globulin 2.44 Albumin/Globulin Ratio 1.51 Urine Color Yellow Urine Clarity Clear Urine pH 6.0 Ur Specific [place] >=1.030 Urine Protein 1+ H Urine Glucose (UA) Negative Urine Ketones 1+ H Urine Blood Negative Urine Nitrite Negative Urine Bilirubin 1+ H Urine Urobilinogen 1.0 H Ur Leukocyte Esterase Negative Urine Microscopic RBC 0-2 Urine Microscopic WBC 2-5 Ur Squamous Epith Cells 10-20 Urine Bacteria Trace Hyaline Casts 2-5 Urine Mucus 1+ Adenovirus (PCR) B. pertussis DNA (PCR) B.parapertussis DNA PCR C. pneumoniae DNA (PCR) Coronavirus OC43 (PCR) Coronavirus HKU1 (PCR) Coronavirus 229E (PCR) Coronavirus NL63 (PCR) Human Metapneumovir PCR Influenza Type A (PCR) Influenza B (RT-PCR) M. pneumoniae (PCR) Parainfluenza 1 (PCR) Parainfluenza 2 (PCR) Parainfluenza 3 (PCR) Parainfluenza 4 (PCR) RSV (PCR) Entero/Rhino (PCR) SARS-CoV-2 (PCR) 11/30/21 14:25 WBC RBC Hgb Hct MCV MCH MCHC RDW Coeff of [place] Plt Count Immature Gran % (Auto) Neut % (Auto) Lymph % (Auto) [place] % (Auto) Eos % (Auto) Baso % (Auto) Neut # (Auto) Lymph # (Auto) [place] # (Auto) Eos # (Auto) Baso # (Auto) Immature Gran # (Auto) Sodium Potassium Chloride Carbon Dioxide Anion Gap BUN Creatinine Estimated GFR (MDRD) BUN/Creatinine Ratio Glucose Calcium Total Bilirubin AST ALT Alkaline Phosphatase Troponin I Total Protein Albumin Globulin Albumin/Globulin Ratio Urine Color Urine Clarity Urine pH Ur Specific [place] Urine Protein Urine Glucose (UA) Urine Ketones Urine Blood Urine Nitrite Urine Bilirubin Urine Urobilinogen Ur Leukocyte Esterase Urine Microscopic RBC Urine Microscopic WBC Ur Squamous Epith Cells Urine Bacteria Hyaline Casts Urine Mucus Adenovirus (PCR) Not detected B. pertussis DNA (PCR) Not detected B.parapertussis DNA PCR Not detected C. pneumoniae DNA (PCR) Not detected Coronavirus OC43 (PCR) Not detected Coronavirus HKU1 (PCR) Not detected Coronavirus 229E (PCR) Not detected Coronavirus NL63 (PCR) Not detected Human Metapneumovir PCR Not detected Influenza Type A (PCR) Not detected Influenza B (RT-PCR) Not detected M. pneumoniae (PCR) Not detected Parainfluenza 1 (PCR) Not detected Parainfluenza 2 (PCR) Not detected Parainfluenza 3 (PCR) Not detected Parainfluenza 4 (PCR) Not detected RSV (PCR) Not detected Entero/Rhino (PCR) Not detected SARS-CoV-2 (PCR) Not detected Orders Category Date Time Status ADMIT PATIENT INPATIENT .TO MEDSURG (MONITORED BED) ADMISSION 11/30/21 14:59 Active EKG-(ED ONLY) Stat CARDIO 11/30/21 11:17 Completed EKG-(IP & OP ONLY) DAILY CARDIO 12/01/21 06:00 Ordered EKG-(IP & OP ONLY) DAILY CARDIO 12/02/21 06:00 Ordered NEBULIZER TREATMENT Routine CARDIO 11/30/21 14:50 Active OXYGEN Routine CARDIO 11/30/21 14:46 Active ACTIVITY .BR with BRP CARE 11/30/21 14:46 Active IP: INSERT SALINE LOCK ONCE CARE 11/30/21 14:46 Active NPO REMINDER: IMAGING ONCE CARE 11/30/21 12:17 Completed TELEMETRY MONITORING TELE CARE 11/30/21 14:46 Active TELEMETRY MONITORING TELE CARE 11/30/21 15:00 Active VITAL SIGNS Q8HR CARE 11/30/21 14:46 Active CARDIAC DIET DIETARY 11/30/21 Dinner Ordered ED ENEMA/RECTAL TUBE .ONCE EMERGENCY 11/30/21 14:46 Active CBC W/ AUTO DIFF Stat LAB 11/30/21 11:30 Completed COMPREHENSIVE METABOLIC PANEL Stat LAB 11/30/21 11:30 Completed RESPIRATORY PANEL 2.1 (PCR) Stat LAB 11/30/21 14:25 Completed TROPONIN I Stat LAB 11/30/21 11:30 Completed URINALYSIS C & S IF INDICATED Stat LAB 11/30/21 12:30 Completed 0.9 % Sodium Chloride [Saline Flush] MEDS 11/30/21 21:00 Discontinued 1 syr IVF Q8HR Acetaminophen [Tylenol] MEDS 11/30/21 14:46 Active 650 mg PO Q4H PRN Albuterol Sulfate 0.083% Neb [Albuterol 0.083% Neb] MEDS 11/30/21 14:50 Active 2.5 mg NEB Q4-6H PRN Alprazolam [Xanax] MEDS 11/30/21 17:00 Active 0.25 mg PO QID Aspirin [Aspirin Chewable] MEDS 12/01/21 08:30 Active 81 mg PO DAILYWM Atropine Sulfate Inj [Atropine Sulfate Pfs] MEDS 11/30/21 14:46 Active 0.5 mg IVP ONCE PRN Carvedilol [Coreg] MEDS 11/30/21 17:00 Active 12.5 mg PO BIDWM Clopidogrel Bisulfate [Plavix] MEDS 11/30/21 21:00 Active 75 mg PO BEDTIME Dextrose 5 %-0.45 % NaCl [Dextrose 5%-1/2Ns IV Solution MEDS 11/30/21 15:22 Discontinued ] 1,000 ml IV 70 mls/hr Memantine HCl [Namenda] MEDS 11/30/21 21:00 Active 10 mg PO BID Nitroglycerin [Nitrostat] MEDS 11/30/21 14:46 Active 0.4 mg SL Q5MIN X 3 DOSES PRN [place]-3/Dha/Epa/Fish Oil [[place]-3 Fish Oil] MEDS 11/30/21 21:00 Active 1,000 mg PO BEDTIME Ondansetron HCl/Pf [Zofran 4 mg/2 ml] MEDS 11/30/21 11:12 Discontinued 4 mg IVP ONCE ONE Ondansetron HCl/Pf [Zofran 4 mg/2 ml] MEDS 11/30/21 15:26 Active 4 mg IVP Q4-6H PRN Pravastatin Sodium [Pravachol] MEDS 12/01/21 09:00 Active 80 mg PO DAILY Ringers Lactated Solution [Lactated Ringers] 1,000 ml MEDS 11/30/21 11:12 Discontinued IV BOLUS Tramadol HCl [Ultram] MEDS 11/30/21 14:50 Active 50 mg PO BID PRN Trazodone HCl [Desyrel] MEDS 11/30/21 21:00 Active 50 mg PO BEDTIME Triamterene/Hydrochlorothiazid [Dyazide] MEDS 12/01/21 09:00 Active 1 cap PO TuThSa CHEST, 1V AP ONLY Stat RADS 11/30/21 12:[address] ABDOMEN/PELVIS WO CONTRAST Stat RADS 11/30/21 12:17 Completed Medications Generic Name Dose Route Start Last Admin Trade Name Freq PRN Reason Stop Dose Admin Acetaminophen 650 mg 11/30/21 14:46 Acetaminophen 325 Mg Tablet PO Q4H PRN Headache Albuterol Sulfate 2.5 mg 11/30/21 14:50 Albuterol Sulfate 0.083% Vial.Neb NEB Q4-6H PRN Wheezing Alprazolam 0.25 mg 11/30/21 17:00 11/30/21 20:43 Alprazolam 0.25 Mg Tablet PO 0.25 mg QID CARY Administration Aspirin 81 mg 12/01/21 08:30 Aspirin 81 Mg Tab.Chew PO DAILYWM CARY Atropine Sulfate 0.5 mg 11/30/21 14:46 Atropine Sulfate Inj 1 Mg/10 Ml Disp.Syrin IVP ONCE PRN Symptomatic Bradycardia Carvedilol 12.5 mg 11/30/21 17:00 11/30/21 16:09 Carvedilol 12.5 Mg Tablet PO 12.5 mg BIDWM CARY Administration Clopidogrel Bisulfate 75 mg 11/30/21 21:00 11/30/21 20:44 Clopidogrel Bisulfate 75 Mg Tablet PO 75 mg BEDTIME CARY Administration Fish Oil 1,000 mg 11/30/21 21:00 11/30/21 20:44 [place]-3/Dha/Epa/Fish Oil 1,000 Mg Capsule PO 1,000 mg BEDTIME CARY Administration Sodium Chloride 1,000 mls @ 75 mls/hr 11/30/21 18:00 11/30/21 17:52 Sodium Chloride IV Not Given Q13H CARY Memantine 10 mg 11/30/21 21:00 11/30/21 20:44 Memantine Hcl 10 Mg Tablet PO 10 mg BID CARY Administration Nitroglycerin 0.4 mg 11/30/21 14:46 Nitroglycerin 0.4 Mg Tab.Subl SL Q5MIN X 3 DOSES PRN Chest Pain Ondansetron HCl 4 mg 11/30/21 15:26 Ondansetron Hcl/Pf 4 Mg/2 Ml Sdv IVP Q4-6H PRN Nausea / Vomiting Polyethylene Glycol 17 gm 11/30/21 17:00 11/30/21 17:33 Polyethylene Glycol 17 Gm Powd.Pack PO 17 gm TIDWM CARY Administration Pravastatin Sodium 80 mg 12/01/21 09:00 Pravastatin Sodium 40 Mg Tablet PO DAILY CARY Sodium Chloride 1 syr 11/30/21 20:54 0.9% Sodium Chloride 10 Ml Disp.Syrin IVF PRN PRN FLUSHING Tramadol HCl 50 mg 11/30/21 14:50 11/30/21 21:31 Tramadol Hcl 50 Mg Tablet PO 50 mg BID PRN Administration Pain Trazodone HCl 50 mg 11/30/21 21:00 11/30/21 20:44 Trazodone Hcl 50 Mg Tablet PO 50 mg BEDTIME CARY Administration Triamterene/Hydrochlorothiazide 1 cap 12/01/21 09:00 Triamterene/Hydrochlorothiazid 37.5/25 Mg Capsule PO TuThSa CARY Discontinued Medications Generic Name Dose Route Start Last Admin Trade Name Freq PRN Reason Stop Dose Admin Lactated Ringer's 1,000 mls @ 1,000 mls/hr 11/30/21 11:12 11/30/21 11:43 Lactated Ringers IV 11/30/21 12:11 1,000 mls/hr BOLUS STA Administration Dextrose/Sodium Chloride 1,000 mls @ 70 mls/hr 11/30/21 15:22 11/30/21 16:06 Dextrose 5%-1/2ns Iv Solution IV 12/01/21 05:39 70 mls/hr .[id number] STA Administration Sodium Chloride 1,000 mls @ 75 mls/hr 11/30/21 17:00 11/30/21 17:39 Sodium Chloride IV 75 mls/hr Q0H CARY Administration Ondansetron HCl 4 mg 11/30/21 11:12 11/30/21 11:44 Ondansetron Hcl/Pf 4 Mg/2 Ml Sdv IVP 11/30/21 11:13 4 mg ONCE ONE Administration Sodium Chloride 1 syr 11/30/21 21:00 11/30/21 20:45 0.9% Sodium Chloride 10 Ml Disp.Syrin IVF Not Given Q8HR [facility] Vital Signs: Temp Pulse Resp BP Pulse Ox 11/30/21 10:40 97.7 F 94 H 14 127/92 H 96 Discharge Plan Discharge Patient Disposition: ADMITTED INPATIENT Discharge Problem: Abdominal pain, Fecal impaction ED Provider: FELY KING Condition: Stable Physician Progress Note: [Fecal impaction. She wants admitted here for treatment for that. She has a lung cancer with mets and she was supposed to start chemo tomorrow, she does not any chemo.]
[2021-11-30] MEDS ORDERED: ZOFRAN 4 MG/2 ML IVP ONE (11:12)
[2021-11-30] MEDS ORDERED: LACTATED RINGERS 1,000 ML IV STA (11:12)
[2021-11-30 11:35] LABS: BASOPHILS % (AUTO) 0.3 % (0.0-3.0); EOSINOPHILS % (AUTO) 0.1 % (0.0-7.0); HEMATOCRIT 39.7 % (37.0-47.0); HEMOGLOBIN 13.7 g/dl (12.0-16.0); IMMATURE GRANULOCYTE # (AUTO) 0.1 (0.0-1.0); IMMATURE GRANULOCYTE % (AUTO) 0.7 % (0.0-5.0); LYMPHOCYTES # (AUTO) 0.8 K/uL (0.60-3.4); LYMPHOCYTES % (AUTO) 10.5 (10.0-50.0); MEAN CORPUSCULAR HEMOGLOBIN 31.2 pg (27.0-31.0); MEAN CORPUSCULAR HGB CONC 34.5 (31.8-35.4); MEAN CORPUSCULAR VOLUME 90.4 fl (81.0-99.0); MONOCYTES # (AUTO) 0.6 K/uL (0.4-2.0); MONOCYTES % (AUTO) 8.1 (0-10); NEUTROPHILS # (AUTO) 5.9 K/ul (2.0-6.9); NEUTROPHILS % (AUTO) 80.3 % (42.2-75.2); PLATELET COUNT 156 10^3/uL (140-440); RDW COEFFICIENT OF VARIATION 13.9 % (11.6-14.8); RED BLOOD COUNT 4.39 10^6/ul (4.20-5.40)
[2021-11-30 11:47] LABS: ALANINE AMINOTRANSFERASE 35.2 U/L (0-35); ALBUMIN 3.69 g/dL (3.5-5.0); ALKALINE PHOSPHATASE 141.7 U/L (53-141); ASPARTATE AMINO TRANSFERASE 59.1 U/L (14-36); BILIRUBIN,TOTAL 1.09 mg/dL (0.2-1.3); BLOOD UREA NITROGEN 21.9 mg/dL (7-17); CARBON DIOXIDE 29.9 mmol/L (22-30.0); CHLORIDE 86.5 mmol/L (98-107); CREATININE 0.95 mg/dL (0.60-1.30); GLUCOSE 89.4 mg/dL (74-106); POTASSIUM 4.13 mmol/L (3.5-5.1); SODIUM 124.1 mmol/L (134.5-145); TOTAL PROTEIN 6.13 g/dL (6.3-8.2)
[2021-11-30 12:00] LABS: TROPONIN I < 0.012 ng/ml (0.0000-0.120)
[2021-11-30 12:40] LABS: BILIRUBIN,URINE 1+ (NEGATIVE); CLARITY,URINE Clear (CLEAR); COLOR,URINE Yellow (YELLOW); GLUCOSE, URINE (UA) Negative (NEGATIVE); KETONES,URINE 1+ (NEGATIVE); LEUKOCYTE ESTERASE ,URINE Negative (NEGATIVE); NITRITE,URINE Negative (NEGATIVE); PROTEIN,URINE 1+ (NEGATIVE); URINE, BLOOD Negative (NEGATIVE)
--- NOTE | 2021-11-30 12:57 | DI ---
EXAM: Chest one view, frontal view only. HISTORY: Cough. COMPARISON: 10/28/2021. FINDINGS: Sternotomy wires noted. The heart size is normal. There is no pulmonary vascular congesti on. The lungs are clear. No pleural effusion or pneumothorax is seen. No acute osseous abnormality is identified. Since the prior study, there has been no significant interval change. IMPRESSION: No acute cardiopulmonary process.
[2021-11-30 13:11] LABS: BACTERIA,URINE TRACE (NOT PRESENT); MUCUS,URINE 1+ (NOT PRESENT); URINE RBC, MICROSCOPIC 0-2 (0-2)
--- NOTE | 2021-11-30 13:24 | CT ---
EXAM: CT Abdomen without contrast. CT Pelvis without contrast. HISTORY: Abdominal pain and vomiting. COMPARISON: 10/28/2021. TECHNIQUE: Multiple axial images of the abdomen and pelvis were obtained without intravenous contras t. Images were reformatted in the sagittal and coronal plane. FINDINGS: Please note that evaluation of the abdominal and pelvic structures is limited due to lack of intravenous contrast. No acute abnormality in the lung bases. Internal fixation of proximal left femoral fracture fracture. Degenerative changes present in the sp ine. Gallbladder absent. Liver lesions noted previously are not well characterized due to noncontrast tod hnique and overlying artifact. The pancreas, spleen, adrenal glands, and kidneys demonstrate no acut e abnormality. Relative left renal atrophy. Probable small hiatal hernia. No bowel obstruction. Large amount of rectal stool with mild presacra l edema. No rectal wall thickening or pneumatosis. Previously noted colonic wall thickening not wel l appreciated currently. Uterus demonstrates normal contour. Bladder normal. Atherosclerotic calci fications present. Fusiform dilatation of the infrarenal aorta up to 2.6 cm. Right lower quadrant ly mph node measuring 0.4 cm short axis on axial image 72 is stable IMPRESSION: 1. Large amount of rectal stool with presacral edema suggesting fecal impaction. No veronica stercoral colitis. 2. Previously noted colonic wall thickening not well seen currently. 3. Liver lesions and on the prior study are not not well seen currently due to technique. All CT scans are performed using dose optimization techniques as appropriate to the performed exam an d include at least one of the following: Automated exposure control, adjustment of the mA and/or kV according t o size, and the use of iterative reconstruction technique.
[2021-11-30 14:30] LABS: BORDETELLA PARAPERTUSSIS (PCR) NOT DETECTED (NOT DETECT); BORDETELLA PERTUSSIS (PCR) NOT DETECTED (NOT DETECT); CHLAMYDIA PNEUMONIAE (PCR) NOT DETECTED (NOT DETECT); CORONAVIRUS 229E (PCR) NOT DETECTED (NOT DETECT); CORONAVIRUS HKU1 (PCR) NOT DETECTED (NOT DETECT); CORONAVIRUS NL63 (PCR) NOT DETECTED (NOT DETECT); CORONAVIRUS OC43 (PCR) NOT DETECTED (NOT DETECT); HUMAN METAPNEUMOVIRUS (PCR) NOT DETECTED (NOT DETECT); HUMAN RHINOVIRUS/ENTEROV (PCR) NOT DETECTED (NOT DETECT); INFLUENZA B (PCR) NOT DETECTED (NOT DETECT); MYCOPLASMA PNEUMONIAE (PCR) NOT DETECTED (NOT DETECT); PARAINFLUENZA VIRUS 1 (PCR) NOT DETECTED (NOT DETECT); PARAINFLUENZA VIRUS 2 (PCR) NOT DETECTED (NOT DETECT); PARAINFLUENZA VIRUS 3 (PCR) NOT DETECTED (NOT DETECT); PARAINFLUENZA VIRUS 4 (PCR) NOT DETECTED (NOT DETECT); RESPIRATORY SYNCYTIAL V (PCR) NOT DETECTED (NOT DETECT); SARS_COV_2 (PCR) NOT DETECTED (NOT DETECT)
[2021-11-30] MEDS ORDERED: ATROPINE SULFATE PFS IVP PRN (14:46)
[2021-11-30] MEDS ORDERED: SODIUM CHLORIDE 1,000 ML IV STA (14:46)
[2021-11-30] MEDS ORDERED: TYLENOL PO PRN (14:46)
[2021-11-30] MEDS ORDERED: NITROSTAT SL PRN (14:46)
[2021-11-30 15:18] LABS: ADENOVIRUS (PCR) NOT DETECTED (NOT DETECT)
[2021-11-30] MEDS ORDERED: DEXTROSE 5%-1/2NS IV SOLUTION 1,000 ML IV STA (15:22)
[2021-11-30] MEDS ORDERED: ZOFRAN 4 MG/2 ML IVP PRN (15:26)
[2021-11-30 16:08] VITALS: BMI 14.6
[2021-11-30] MEDS: COREG PO SCH (16:09)
[2021-11-30] MEDS: XANAX PO SCH ×2 (16:14→20:43)
[2021-11-30] MEDS ORDERED: SODIUM CHLORIDE 1,000 ML IV SCH (17:00)
[2021-11-30] MEDS: MIRALAX PO SCH (17:33)
[2021-11-30] MEDS: SODIUM CHLORIDE 1,000 ML IV SCH (17:52)
[2021-11-30] MEDS: OMEGA-3 FISH OIL PO SCH (20:44)
[2021-11-30] MEDS: NAMENDA PO SCH (20:44)
[2021-11-30] MEDS: PLAVIX PO SCH (20:44)
[2021-11-30] MEDS: DESYREL PO SCH (20:44)
[2021-11-30] MEDS ORDERED: [UNRECOGNIZED DRUG - OTHER] PO SCH (21:00)
[2021-11-30] MEDS ORDERED: OMEGA PO SCH (21:00)
[2021-11-30] MEDS: ULTRAM PO PRN (21:31)
[2021-12-01 05:54] LABS: BASOPHILS % (AUTO) 0.2 % (0.0-3.0); EOSINOPHILS % (AUTO) 0.7 % (0.0-7.0); HEMOGLOBIN 11.8 g/dl (12.0-16.0); IMMATURE GRANULOCYTE % (AUTO) 0.7 % (0.0-5.0); LYMPHOCYTES # (AUTO) 0.9 K/uL (0.60-3.4); LYMPHOCYTES % (AUTO) 19.2 (10.0-50.0); MEAN CORPUSCULAR HEMOGLOBIN 32.2 pg (27.0-31.0); MEAN CORPUSCULAR HGB CONC 35.8 (31.8-35.4); MEAN CORPUSCULAR VOLUME 89.9 fl (81.0-99.0); MONOCYTES # (AUTO) 0.5 K/uL (0.4-2.0); MONOCYTES % (AUTO) 11.8 (0-10); NEUTROPHILS % (AUTO) 67.4 % (42.2-75.2); PLATELET COUNT 143 10^3/uL (140-440); RDW COEFFICIENT OF VARIATION 14.1 % (11.6-14.8); RED BLOOD COUNT 3.67 10^6/ul (4.20-5.40); WHITE BLOOD COUNT 4.42 K/ul (4.6-10.2)
[2021-12-01] MEDS: SODIUM CHLORIDE 1,000 ML IV SCH ×3 (05:56→18:25)
[2021-12-01 06:07] LABS: ALANINE AMINOTRANSFERASE 30.2 U/L (0-35); ALBUMIN 3.07 g/dL (3.5-5.0); ALKALINE PHOSPHATASE 112.3 U/L (53-141); BILIRUBIN,TOTAL 0.65 mg/dL (0.2-1.3); BLOOD UREA NITROGEN 19.2 mg/dL (7-17); CALCIUM 7.76 mg/dL (8.4-10.2); CARBON DIOXIDE 29.1 mmol/L (22-30.0); CREATININE 0.74 mg/dL (0.60-1.30); GLUCOSE 81.2 mg/dL (74-106); POTASSIUM 3.78 mmol/L (3.5-5.1); SODIUM 125.2 mmol/L (134.5-145); TOTAL PROTEIN 5.39 g/dL (6.3-8.2)
[2021-12-01] MEDS ORDERED: DYAZIDE PO SCH (09:00)
[2021-12-01] MEDS: ASPIRIN CHEWABLE PO SCH (10:10)
[2021-12-01] MEDS: PRAVACHOL PO SCH (10:11)
[2021-12-01] MEDS: COREG PO SCH ×2 (10:11→17:18)
[2021-12-01] MEDS: MIRALAX PO SCH ×3 (10:11→17:18)
[2021-12-01] MEDS: NAMENDA PO SCH ×2 (10:11→20:44)
[2021-12-01] MEDS: XANAX PO SCH ×4 (10:11→20:44)
--- NOTE | 2021-12-01 10:41 | PCM.PROG ---
Attending Provider: ATTENDING PROVIDER: Dr. TOSHA SHANNON This patient is seen with Katelyn Van, Nurse Practitioner. DATE OF SERVICE: 12/01/21 SUBJECTIVE: This 81 year old /WHITE F was hospitalized 11/30/21. The patient has only had small amount of oozing stool. No significant bowel movement. Not in significant pain. REVIEW OF SYSTEMS: CONSTITUTIONAL: No night sweats. No fatigue, malaise, lethargy. No fever or chills. Weakness. HEENT: Eyes: No visual changes. No eye pain. No eye discharge. ENT: No runny nose. No epistaxis. No sinus pain. No odynophagia. No congestion. RESPIRATORY: No cough, no congestion. No hemoptysis. No shortness of breath. CARDIOVASCULAR: No angina symptoms. No CHF symptoms. No atypical chest pain for CAD. No palpitations. No orthopnea.. GASTROINTESTINAL: No abdominal pain. No nausea or vomiting. Constipation. No hematemesis. No hematochezia. GENITOURINARY: No urgency. No frequency. No dysuria. No hematuria. No obstructive symptoms. No discharge. No pain. No significant abnormal bleeding. MUSCULOSKELETAL: No musculoskeletal pain; no joint swelling. NEUROLOGICAL: Awake, alert, oriented to time, place and person. No headache. No neck pain. No syncope. No seizures. No dizziness. PSYCHIATRIC: Not anxious. No depression. No suicidal thoughts. No homicidal thoughts. SKIN: No rash. No lesions. No wounds. ENDOCRINE: No unexplained weight loss. No weight gain. HEMATOLOGIC/LYMPHATIC: No anemia. No purpura. No petechiae. No prolonged or excessive bleeding. No palpable lymph nodes. PHYSICAL EXAMINATION: GENERAL: The patient is awake, alert and oriented, sitting in bed in no distress. VITAL SIGNS: Temperature 97.7 F, Pulse 74, Respiratory Rate 20, BP 124/79, Pulse Ox 94% HEENT: Head normocephalic, atraumatic. Eyes: Extraocular muscles are intact. Pupils are equal, round and reactive to light and accommodation. Ears: No lesions. Nose appeared normal. Throat: No exudate or erythema. NECK: Supple. No JVD, no carotid bruit. No lymphadenopathy or thyromegaly. LUNGS: Diminished breath sounds. Clear to auscultation. Percussion note normal. Chest symmetrical. HEART: S1, S2, no S3. No murmurs. No cyanosis or clubbing. No ascites. Pulses: Dorsalis pedis and posterior tibial pulses +1 to +2 both sides. ABDOMEN: Soft. Slight abdominal distention and tenderness right and left anna drant. Bowel sounds active. No CVA tenderness. No mass felt. EXTREMITIES: No edema. Full range of motion of all extremities, equal. NEUROLOGIC: No focal deficit. Cranial nerves II through XII are grossly intact. No headache. No double vision. SKIN: Not dry. Intact. Turgor-normal. LYMPHATIC: No palpable lymph nodes/no lymphedema. MUSCULOSKELETAL: Normal joints with no swelling. Muscle tone is normal. LAB REVIEW: 12/01/21 05:49 12/01/21 05:49 12/01/21 05:49: Sodium 125.2 L, Potassium 3.78, Chloride 92.0 L, Carbon Dioxide 29.1, Anion Gap 7.88, BUN 19.2 H, Creatinine 0.74, Estimated GFR (MDRD) 76.00, BUN/Creatinine Ratio 25.94, Glucose 81.2, Calcium 7.76 L, Total Bilirubin 0.65, AST 58.0 H, ALT 30.2, Alkaline Phosphatase 112.3 D, Total Protein 5.39 L, Albumin 3.07 L, Globulin 2.32, Albumin/Globulin Ratio 1.32 12/01/21 05:49: WBC 4.42 L, RBC 3.67 L, Hgb 11.8 L, Hct 33.0 L D, MCV 89.9, MCH 32.2 H, MCHC 35.8 H, RDW Coeff of Figuero[place] 14.1, Plt Count 143, Immature Gran % (Auto) 0.7, Neut % (Auto) 67.4, Lymph % (Auto) 19.2, [place] % (Auto) 11.8 H, Eos % (Auto) 0.7, Baso % (Auto) 0.2, Neut # (Auto) 3.0, Lymph # (Auto) 0.9, [place] # (Auto) 0.5, Eos # (Auto) 0.0, Baso # (Auto) 0.0, Immature Gran # (Auto) 0.0 11/30/21 14:25: Adenovirus (PCR) Not detected, B. pertussis DNA (PCR) Not detected, B.parapertussis DNA PCR Not detected, C. pneumoniae DNA (PCR) Not detected, Coronavirus OC43 (PCR) Not detected, Coronavirus HKU1 (PCR) Not detected, Coronavirus 229E (PCR) Not detected, Coronavirus NL63 (PCR) Not detected, Human Metapneumovir PCR Not detected, Influenza Type A (PCR) Not detected, Influenza B (RT-PCR) Not detected, M. pneumoniae (PCR) Not detected, Parainfluenza 1 (PCR) Not detected, Parainfluenza 2 (PCR) Not detected, Parainfluenza 3 (PCR) Not detected, Parainfluenza 4 (PCR) Not detected, RSV (PCR) Not detected, Entero/Rhino (PCR) Not detected, SARS-CoV-2 (PCR) Not detected 11/30/21 12:30: Urine Color Yellow, Urine Clarity Clear, Urine pH 6.0, Ur Specific [place] >=1.030, Urine Protein 1+ H, Urine Glucose (UA) Negative, Urine Ketones 1+ H, Urine Blood Negative, Urine Nitrite Negative, Urine Bilirubin 1+ H , Urine Urobilinogen 1.0 H, Ur Leukocyte Esterase Negative, Urine Microscopic RBC 0-2, Urine Microscopic WBC 2-5, Ur Squamous Epith Cells 10-20, Urine Lj teria Trace, Hyaline Casts 2-5, Urine Mucus 1+ 11/30/21 11:30: Sodium 124.1 L, Potassium 4.13, Chloride 86.5 L, Carbon Dioxide 29.9, Anion Gap 11.83, BUN 21.9 H, Creatinine 0.95, Estimated GFR (MDRD) 57.00, BUN/Creatinine Ratio 23.05, Glucose 89.4, Calcium 8.60, Total Bilirubin 1.09, AST 59.1 H, ALT 35.2 H, Alkaline Phosphatase 141.7 H, Troponin I < 0.012, Total Protein 6.13 L, Albumin 3.69, Globulin 2.44, Albumin/Globulin Ratio 1.51 11/30/21 11:30: WBC 7.30, RBC 4.39, Hgb 13.7, Hct 39.7, MCV 90.4, MCH 31.2 H, MCHC 34.5, RDW Coeff of [place]uero[place] 13.9, Plt Count 156, Immature Gran % (Auto) 0.7, Neut % (Auto) 80.3 H, Lymph % (Auto) 10.5, [place] % (Auto) 8.1, Eos % (Auto) 0.1, Baso % (Auto) 0.3, Neut # (Auto) 5.9, Lymph # (Auto) 0.8, [place] # (Auto) 0.6, Eos # (Auto) 0.0, Baso # (Auto) 0.0, Immature Gran # (Auto) 0.1 ASSESSMENT: Please see below. 1. Fecal impaction/constipation 2. Small liver cancer with METS 3. Failure to thrive 4. Dehydration 5. Hyponatremia PLAN: 1. Continue IV fluids 2. Will do mineral oil enema 3. Discussed manual evacuation 4. Half bottle mag citrate 5. The patient discussed was supposed to have first chemo treatment today. Discussed prognosis and thinking about Hospice. We will discuss further during stay. 6. Hold Dyazide Plan and coordination of the patient's care discussed in the presence of Field Artillery Crewmember and nurse. SCRIBED BY: ISAÍAS JACKSON [employer] scribed while in presence of service performed by Dr. Shannon/Katelyn Van APRN on 12/01/21 ([id number])
--- NOTE | 2021-12-01 13:22 | PN ---
DATE OF SERVICE: 11/30/21 SUBJECTIVE: The patient was hospitalized today through the emergency room. She had nausea and vomiting. The patient on further work up in the emergency room with the CAT scan revealed fecal impaction. The patient on physical exam had poor skin turgor. Heart was S1, S2 and NO S3. Abdomen was soft. Bowl sounds are hyperactive. No distention was noted. The patient had mild dehydration along with fecal impaction. The patient was supposed to have chemo therapy today but she declined to have chemotherapy. She declined to go to [facility] for further treatment because they could follow her up after treating her fecal impaction and may give her chemo therapy while she is there but she declined. She is going to be hospitalized at [place] and going to give soap suds enema, some slow IV fluids. She will be watched with telemetry. The patient's condition otherwise is stable. PROGNOSIS: Poor. TIME SPENT: More than 30 minutes. Plan and coordination of the patient's care discussed in the presence of nurse. FUAD
[2021-12-01] MEDS: PLAVIX PO SCH (20:43)
[2021-12-01] MEDS: DESYREL PO SCH (20:43)
[2021-12-01] MEDS: ULTRAM PO PRN (20:43)
[2021-12-01] MEDS: OMEGA-3 FISH OIL PO SCH (20:44)
[2021-12-02] MEDS: SODIUM CHLORIDE 1,000 ML IV SCH ×3 (01:33→19:49)
[2021-12-02 05:35] LABS: HEMATOCRIT 32.4 % (37.0-47.0); MEAN CORPUSCULAR VOLUME 91.3 fl (81.0-99.0); PLATELET COUNT 144 10^3/uL (140-440); RDW COEFFICIENT OF VARIATION 14.3 % (11.6-14.8); RED BLOOD COUNT 3.55 10^6/ul (4.20-5.40); WHITE BLOOD COUNT 5.64 K/ul (4.6-10.2)
[2021-12-02 05:43] LABS: ANISOCYTOSIS NOT PRESENT (NOT PRESENT)
[2021-12-02 05:49] LABS: ALBUMIN 2.75 g/dL (3.5-5.0); ALKALINE PHOSPHATASE 112.1 U/L (53-141); ASPARTATE AMINO TRANSFERASE 57.7 U/L (14-36); BILIRUBIN,TOTAL 0.5 mg/dL (0.2-1.3); BLOOD UREA NITROGEN 13.4 mg/dL (7-17); CALCIUM 7.38 mg/dL (8.4-10.2); CARBON DIOXIDE 28.4 mmol/L (22-30.0); CREATININE 0.56 mg/dL (0.60-1.30); POTASSIUM 3.85 mmol/L (3.5-5.1); SODIUM 126.4 mmol/L (134.5-145); TOTAL PROTEIN 4.92 g/dL (6.3-8.2)
[2021-12-02] MEDS: NAMENDA PO SCH ×2 (08:12→21:03)
[2021-12-02] MEDS: XANAX PO SCH ×4 (08:12→21:03)
[2021-12-02] MEDS: ASPIRIN CHEWABLE PO SCH (08:12)
[2021-12-02] MEDS: PRAVACHOL PO SCH (08:12)
[2021-12-02] MEDS: MIRALAX PO SCH ×3 (08:12→17:38)
[2021-12-02] MEDS: COREG PO SCH ×2 (08:12→17:39)
--- NOTE | 2021-12-02 13:07 | DI ---
EXAM: Abdomen, single view HISTORY: fecal impaction COMPARISON: 11/30/2021 FINDINGS / IMPRESSION: Nonobstructive bowel gas pattern. Cholecystectomy clips are present within t he right upper quadrant. No radiographic findings of constipation or fecal impaction. Mild gaseous distension of the rectum.
[2021-12-02] MEDS: OMEGA-3 FISH OIL PO SCH (21:03)
[2021-12-02] MEDS: DESYREL PO SCH (21:03)
[2021-12-02] MEDS: PLAVIX PO SCH (21:03)
[2021-12-03 05:43] LABS: BASOPHILS % (AUTO) 0.4 % (0.0-3.0); EOSINOPHILS % (AUTO) 0.2 % (0.0-7.0); HEMATOCRIT 34.1 % (37.0-47.0); HEMOGLOBIN 11.5 g/dl (12.0-16.0); IMMATURE GRANULOCYTE # (AUTO) 0.1 (0.0-1.0); IMMATURE GRANULOCYTE % (AUTO) 1.5 % (0.0-5.0); LYMPHOCYTES # (AUTO) 0.7 K/uL (0.60-3.4); LYMPHOCYTES % (AUTO) 12.5 (10.0-50.0); MEAN CORPUSCULAR HEMOGLOBIN 31.2 pg (27.0-31.0); MEAN CORPUSCULAR HGB CONC 33.7 (31.8-35.4); MEAN CORPUSCULAR VOLUME 92.4 fl (81.0-99.0); MONOCYTES # (AUTO) 0.4 K/uL (0.4-2.0); MONOCYTES % (AUTO) 7.6 (0-10); NEUTROPHILS # (AUTO) 4.2 K/ul (2.0-6.9); NEUTROPHILS % (AUTO) 77.8 % (42.2-75.2); PLATELET COUNT 140 10^3/uL (140-440); RDW COEFFICIENT OF VARIATION 14.8 % (11.6-14.8); RED BLOOD COUNT 3.69 10^6/ul (4.20-5.40); WHITE BLOOD COUNT 5.42 K/ul (4.6-10.2)
[2021-12-03 05:57] LABS: ALANINE AMINOTRANSFERASE 33.5 U/L (0-35); ALBUMIN 2.76 g/dL (3.5-5.0); ALKALINE PHOSPHATASE 105.4 U/L (53-141); ASPARTATE AMINO TRANSFERASE 58.5 U/L (14-36); BILIRUBIN,TOTAL 0.51 mg/dL (0.2-1.3); BLOOD UREA NITROGEN 10.3 mg/dL (7-17); CALCIUM 7.55 mg/dL (8.4-10.2); CARBON DIOXIDE 27.9 mmol/L (22-30.0); CREATININE 0.56 mg/dL (0.60-1.30); GLUCOSE 105.2 mg/dL (74-106); POTASSIUM 4.16 mmol/L (3.5-5.1); SODIUM 131.1 mmol/L (134.5-145); TOTAL PROTEIN 5.03 g/dL (6.3-8.2)
[2021-12-03] MEDS: ALBUTEROL 0.083% NEB NEB PRN (06:38)
[2021-12-03] MEDS ORDERED: PROAIR HFA (SINGLE PATIENT USE) IH PRN (09:12)
[2021-12-03] MEDS ORDERED: VENTOLIN HFA (PER PUFF-WITH SPACER) IH PRN ×2 (09:16→12:41)
[2021-12-03] MEDS: PRAVACHOL PO SCH (10:11)
[2021-12-03] MEDS: COREG PO SCH ×2 (10:11→17:43)
[2021-12-03] MEDS: XANAX PO SCH ×4 (10:11→21:02)
[2021-12-03] MEDS: ASPIRIN CHEWABLE PO SCH (10:11)
[2021-12-03] MEDS: NAMENDA PO SCH ×2 (10:11→21:02)
[2021-12-03] MEDS: MIRALAX PO SCH ×3 (10:12→17:44)
[2021-12-03] MEDS: SODIUM CHLORIDE 1,000 ML IV SCH (10:15)
--- NOTE | 2021-12-03 10:23 | PCM.PROG ---
Attending Provider: ATTENDING PROVIDER: Dr. TOSHA SHANNON This patient is seen with Katelyn Van, Nurse Practitioner. DATE OF SERVICE: 12/03/21 SUBJECTIVE: This 81 year old /WHITE F was hospitalized 11/30/21. Plan x-ray says no constipation but the patient has not had bowel movement. We will repeat CT this morning. Still with abdominal distention. Labs are stable. Not eating much. REVIEW OF SYSTEMS: CONSTITUTIONAL: No night sweats. No fatigue, malaise, lethargy. No fever or chills. HEENT: Eyes: No visual changes. No eye pain. No eye discharge. ENT: No runny nose. No epistaxis. No sinus pain. No odynophagia. No congestion. RESPIRATORY: No cough, no congestion. No hemoptysis. No shortness of breath. CARDIOVASCULAR: No angina symptoms. No CHF symptoms. No atypical chest pain for CAD. No palpitations. No orthopnea.. GASTROINTESTINAL: No abdominal pain. No nausea or vomiting. No diarrhea or constipation. No hematemesis. No hematochezia. Lack of bowel movement. No appetite. GENITOURINARY: No urgency. No frequency. No dysuria. No hematuria. No obstructive symptoms. No discharge. No pain. No significant abnormal bleeding. MUSCULOSKELETAL: No musculoskeletal pain; no joint swelling. NEUROLOGICAL: Awake, alert, oriented to time, place and person. No headache. No neck pain. No syncope. No seizures. No dizziness. PSYCHIATRIC: Not anxious. No depression. No suicidal thoughts. No homicidal thoughts. SKIN: No rash. No lesions. No wounds. ENDOCRINE: No unexplained weight loss. No weight gain. HEMATOLOGIC/LYMPHATIC: No anemia. No purpura. No petechiae. No prolonged or excessive bleeding. No palpable lymph nodes. PHYSICAL EXAMINATION: GENERAL: The patient is awake, alert and oriented, sitting in bed in no distress. VITAL SIGNS: Temperature 98.3 F, Pulse 84, Respiratory Rate 18, BP 138/84, Pulse Ox 99% HEENT: Head normocephalic, atraumatic. Eyes: Extraocular muscles are intact. Pupils are equal, round and reactive to light and accommodation. Ears: No lesions. Nose appeared normal. Throat: No exudate or erythema. NECK: Supple. No JVD, no carotid bruit. No lymphadenopathy or thyromegaly. LUNGS: Diminished breath sounds. Clear to auscultation. Percussion note normal. Chest symmetrical. HEART: S1, S2, no S3. No murmurs. No cyanosis or clubbing. No ascites. Pulses: Dorsalis pedis and posterior tibial pulses +1 to +2 both sides. ABDOMEN: Soft. Non-tender. Bowel sounds active. No CVA tenderness. No mass felt. EXTREMITIES: No edema. Full range of motion of all extremities, equal. NEUROLOGIC: No focal deficit. Cranial nerves II through XII are grossly intact. No headache. No double vision. SKIN: Not dry. Intact. Turgor-normal. LYMPHATIC: No palpable lymph nodes/no lymphedema. MUSCULOSKELETAL: Normal joints with no swelling. Muscle tone is normal. LAB REVIEW: 12/03/21 05:34 12/03/21 05:34 12/03/21 05:34: Sodium 131.1 L, Potassium 4.16, Chloride 101.0, Carbon Dioxide 27.9, Anion Gap 6.36, BUN 10.3, Creatinine 0.56 L, Estimated GFR (MDRD) 104.00, BUN/Creatinine Ratio 18.39, Glucose 105.2, Calcium 7.55 L, Total Bilirubin 0.51, AST 58.5 H, ALT 33.5, Alkaline Phosphatase 105.4, Total Protein 5.03 L, Albumin 2.76 L, Globulin 2.27, Albumin/Globulin Ratio 1.21 12/03/21 05:34: WBC 5.42, RBC 3.69 L, Hgb 11.5 L, Hct 34.1 L, MCV 92.4, MCH 31.2 H, MCHC 33.7, RDW Coeff of Figueroa 14.8, Plt Count 140, Immature Gran % (Auto) 1.5, Neut % (Auto) 77.8 H, Lymph % (Auto) 12.5, [place] % (Auto) 7.6, Eos % (Auto) 0.2, Baso % (Auto) 0.4, Neut # (Auto) 4.2, Lymph # (Auto) 0.7, [place] # (Auto) 0.4, Eos # (Auto) 0.0, Baso # (Auto) 0.0, Immature Gran # (Auto) 0.1 ASSESSMENT: Please see below. 1. Liver cancer with METS 2. Possible constipation 3. Anemia 4. Failure to thrive PLAN: 1. CT abdomen and pelvis without. Plan and coordination of the patient's care discussed in the presence of Lease Examiner and nurse. SCRIBED BY: Moriah ROBLEDO scribed while in presence of service performed by Dr. Shannon/Katelyn Van APRN on 12/03/21 ([id number])
--- NOTE | 2021-12-03 13:04 | CT ---
EXAM: CT of the abdomen and pelvis without contrast. TECHNIQUE: CT of the abdomen and pelvis was performed without the use of contrast. Multiplanar refo rmats were performed. HISTORY: Abdominal pain. COMPARISON: CT abdomen pelvis 11/30/2021. FINDINGS: Evaluation of solid organs and blood vessels is suboptimal without the benefit of contrast. Imaged lower thorax: Mild thickening of the interstitium at the lung bases. Small - moderate bilater al pleural effusions. Coronary calcifications. Liver: Multiple hypodense throughout the liver consistent with metastasis, suboptimally visualized wi thout the benefit of contrast. Gallbladder/Bile Ducts: No biliary dilation. Cholecystectomy. Spleen: Calcified granuloma in the spleen. Pancreas: Unremarkable. Adrenals: Unremarkable. Kidneys/Ureters: Moderate left and mild right renal atrophy. No hydronephrosis. Bowel/mesentery/peritoneum: Diffuse mesenteric edema and small-volume ascites. No bowel obstruction. Appendix not identified. Free air. Retroperitoneum/vessels: No aortic aneurysm. Extensive calcific atherosclerosis. Pelvis: Bladder and uterus and adnexa are unremarkable. Bones/body wall: Left femur fracture repair hardware noted. Diffuse body wall edema. Multilevel spo ndylosis. IMPRESSION: 1. Anasarca with third spacing as evidenced by interstitial pulmonary edema, small to moderate bilate ral pleural effusions, trace ascites, and in the mesentery and body wall. 2. Diffuse liver metastases. 3. Extensive calcific atherosclerosis. All CT scans are performed using dose optimization techniques as appropriate to the performed exam an d include at least one of the following: Automated exposure control, adjustment of the mA and/or kV according t o size, and the use of iterative reconstruction technique.
[2021-12-03] MEDS ORDERED: LASIX IVP ONE (13:50)
[2021-12-03] MEDS: OMEGA-3 FISH OIL PO SCH (21:02)
[2021-12-03] MEDS: DESYREL PO SCH (21:02)
[2021-12-03] MEDS: PLAVIX PO SCH (21:02)
[2021-12-04] MEDS: SODIUM CHLORIDE 1,000 ML IV SCH ×2 (00:31→00:50)
[2021-12-04] MEDS: ALBUTEROL 0.083% NEB NEB PRN (00:41)
[2021-12-04 05:18] VITALS: BP 156/74; TEMP 97.4
[2021-12-04 05:36] LABS: BASOPHILS % (AUTO) 0.2 % (0.0-3.0); HEMATOCRIT 34.5 % (37.0-47.0); HEMOGLOBIN 11.7 g/dl (12.0-16.0); IMMATURE GRANULOCYTE # (AUTO) 0.1 (0.0-1.0); IMMATURE GRANULOCYTE % (AUTO) 1.3 % (0.0-5.0); LYMPHOCYTES # (AUTO) 0.5 K/uL (0.60-3.4); LYMPHOCYTES % (AUTO) 8.9 (10.0-50.0); MEAN CORPUSCULAR HEMOGLOBIN 31.5 pg (27.0-31.0); MEAN CORPUSCULAR HGB CONC 33.9 (31.8-35.4); MONOCYTES # (AUTO) 0.3 K/uL (0.4-2.0); MONOCYTES % (AUTO) 5.5 (0-10); NEUTROPHILS # (AUTO) 4.7 K/ul (2.0-6.9); NEUTROPHILS % (AUTO) 84.1 % (42.2-75.2); PLATELET COUNT 149 10^3/uL (140-440); RDW COEFFICIENT OF VARIATION 14.8 % (11.6-14.8); RED BLOOD COUNT 3.71 10^6/ul (4.20-5.40)
[2021-12-04 05:49] LABS: ALANINE AMINOTRANSFERASE 32.2 U/L (0-35); ALBUMIN 3.04 g/dL (3.5-5.0); ALKALINE PHOSPHATASE 110.9 U/L (53-141); ASPARTATE AMINO TRANSFERASE 57.2 U/L (14-36); BILIRUBIN,TOTAL 0.71 mg/dL (0.2-1.3); BLOOD UREA NITROGEN 11.7 mg/dL (7-17); CALCIUM 7.67 mg/dL (8.4-10.2); CHLORIDE 98.1 mmol/L (98-107); CREATININE 0.57 mg/dL (0.60-1.30); GLUCOSE 100.7 mg/dL (74-106); POTASSIUM 3.75 mmol/L (3.5-5.1); SODIUM 132.5 mmol/L (134.5-145); TOTAL PROTEIN 5.34 g/dL (6.3-8.2)
[2021-12-04] MEDS: ASPIRIN CHEWABLE PO SCH (09:19)
[2021-12-04] MEDS: MIRALAX PO SCH ×2 (09:19→11:01)
[2021-12-04] MEDS: NAMENDA PO SCH (09:19)
[2021-12-04] MEDS: XANAX PO SCH (09:20)
[2021-12-04] MEDS: COREG PO SCH (09:20)
--- NOTE | 2021-12-04 10:09 | PCM.PROG ---
Attending Provider: ATTENDING PROVIDER: Dr. TOSHA SHANNON DATE OF SERVICE: 12/04/21 SUBJECTIVE: This 81 year old /WHITE F was hospitalized 11/30/21 with vomiting, nausea and fecal impaction. Condition has improved. No evidence of fecal impaction. The patient has metastasis cancer of the liver. She declined chemo. She is going to be discharged on [facility]. REVIEW OF SYSTEMS: CONSTITUTIONAL: No night sweats. No fatigue, malaise, lethargy. No fever or chills. HEENT: Eyes: No visual changes. No eye pain. No eye discharge. ENT: No runny nose. No epistaxis. No sinus pain. No odynophagia. No congestion. RESPIRATORY: No cough, no congestion. No hemoptysis. No shortness of breath. CARDIOVASCULAR: No angina symptoms. No CHF symptoms. No atypical chest pain for CAD. No palpitations. No orthopnea.. GASTROINTESTINAL: No abdominal pain. No nausea or vomiting. No diarrhea or constipation. No hematemesis. No hematochezia. GENITOURINARY: No urgency. No frequency. No dysuria. No hematuria. No obstructive symptoms. No discharge. No pain. No significant abnormal bleeding. MUSCULOSKELETAL: No musculoskeletal pain; no joint swelling. NEUROLOGICAL: Awake, alert, oriented to time, place and person. No headache. No neck pain. No syncope. No seizures. No dizziness. PSYCHIATRIC: Not anxious. No depression. No suicidal thoughts. No homicidal thoughts. SKIN: No rash. No lesions. No wounds. ENDOCRINE: No unexplained weight loss. No weight gain. HEMATOLOGIC/LYMPHATIC: No anemia. No purpura. No petechiae. No prolonged or excessive bleeding. No palpable lymph nodes. PHYSICAL EXAMINATION: GENERAL: The patient is awake, alert and oriented, lying in bed in no distress. VITAL SIGNS: Temperature 97.4 F, Pulse 84, Respiratory Rate 16, BP 156/74, Pulse Ox 98% HEENT: Head normocephalic, atraumatic. Eyes: Extraocular muscles are intact. Pupils are equal, round and reactive to light and accommodation. Ears: No lesions. Nose appeared normal. Throat: No exudate or erythema. NECK: Supple. No JVD, no carotid bruit. No lymphadenopathy or thyromegaly. LUNGS: Clear to auscultation. Percussion note normal. Chest symmetrical. HEART: S1, S2, no S3. No murmurs. No cyanosis or clubbing. No ascites. Pulses: Dorsalis pedis and posterior tibial pulses +1 to +2 both sides. ABDOMEN: Soft. Non-tender. Bowel sounds active. No CVA tenderness. No mass felt. EXTREMITIES: No edema. Full range of motion of all extremities, equal. NEUROLOGIC: No focal deficit. Cranial nerves II through XII are grossly intact. No headache, no double vision or headache. SKIN: Warm and dry. Intact. Turgor-normal. LYMPHATIC: No palpable lymph nodes/no lymphedema. MUSCULOSKELETAL: Normal joints with no swelling. Muscle tone is normal. LAB REVIEW: 12/04/21 05:31 12/04/21 05:31 12/04/21 05:31: Sodium 132.5 L, Potassium 3.75, Chloride 98.1, Carbon Dioxide 32.0 H, Anion Gap 6.15, BUN 11.7, Creatinine 0.57 L, Estimated GFR (MDRD) 102.00, BUN/Creatinine Ratio 20.52, Glucose 100.7, Calcium 7.67 L, Total Bilirubin 0.71, AST 57.2 H, ALT 32.2, Alkaline Phosphatase 110.9, Total Protein 5.34 L, Albumin 3.04 L, Globulin 2.30, Albumin/Globulin Ratio 1.32 12/04/21 05:31: WBC 5.60, RBC 3.71 L, Hgb 11.7 L, Hct 34.5 L, MCV 93.0, MCH 31.5 H, MCHC 33.9, RDW Coeff of Figueroa 14.8, Plt Count 149, Immature Gran % (Auto) 1.3, Neut % (Auto) 84.1 H, Lymph % (Auto) 8.9 L, [place] % (Auto) 5.5, Eos % (Auto) 0.0, Baso % (Auto) 0.2, Neut # (Auto) 4.7, Lymph # (Auto) 0.5 L, [place] # (Auto) 0.3 L, Eos # (Auto) 0.0, Baso # (Auto) 0.0, Immature Gran # (Auto) 0.1 ASSESSMENT: Please see below. 1. Liver cancer with METS 2. Severe chronic lung disease 3. Coronary artery disease PLAN: 1. The patient is going to be discharged on same medications as before 2. She is going to be discharged to [facility] 3. The patient is a DNR Plan and coordination of the patient's care discussed in the presence of Binder Operator and nurse. CONDITION: Stable PROGNOSIS: Poor SCRIBED BY: oMriah ROBLEDO scribed while in presence of service performed by Dr. TOSHA SHANNON on 12/04/21 ([id number])
--- NOTE | 2021-12-04 11:16 | HP ---
DATE OF SERVICE: 11/30/21 REASON FOR HOSPITALIZATION/HISTORY OF PRESENT ILLNESS: 81 year old white female who was recently diagnosed with liver cancer, small cell with multiple metastasis. Her first chemo treatment was supposed to be tomorrow. She is here for nausea and vomiting. PAST MEDICAL HISTORY: Multiple liver masses confirmed to be small cell by biopsy last week Right colonic wall thickening right abdominal wall lymphadenopathy Weight loss Bilateral Carotid stenosis Dizziness Left hip fracture repaired 04/20 Chronic bronchitis Peripheral artery disease Left renal artery stenosis Dyslipidemia Basal cell on the face, Dr. Frazier B12 deficiency COPD Smoker Polyarthritis Osteoporosis Chronic anemia Hypertension Coronary artery disease, stent 06/10 Anxiety disorder Weight loss PAST SURGICAL HISTORY: CABG 1997 Stent placement 06/10 Heart cath 03/17 Left hip fracture repair 04/20 REVIEW OF SYSTEMS: CONSTITUTIONAL: No night sweats. No fatigue, malaise, lethargy. No fever or chills. Weakness. HEENT: Eyes: No visual changes. No eye pain. No eye discharge. ENT: No runny nose. No epistaxis. No sinus pain. No sore throat. No odynophagia. No ear pain. No congestion. RESPIRATORY: No cough, no congestion. No hemoptysis. No shortness of breath. CARDIOVASCULAR: No angina symptoms. No CHF symptoms. No atypical chest pain for CAD. No palpitations. No PND. No orthopnea. GASTROINTESTINAL: No abdominal pain. Nausea and vomiting. No diarrhea or constipation. No hematemesis. No hematochezia. GENITOURINARY: No urgency. No frequency. No dysuria. No hematuria. No obstructive symptoms. No discharge. No pain. No significant abnormal bleeding. MUSCULOSKELETAL: No musculoskeletal pain. No joint swelling. No arthritis. NEUROLOGICAL: No headache. No neck pain. No syncope. No seizures. No dizziness. PSYCHIATRIC: Not anxious. No depression. No suicidal thoughts. No homicidal thoughts. SKIN: No rash. No lesions. No wounds. pallor. ENDOCRINE: No unexplained weight loss. No weight gain. HEMATOLOGIC/LYMPHATIC: No anemia. No purpura. No petechiae. No prolonged or excessive bleeding. No palpable lymph nodes. PERSONAL/FAMILY/SOCIAL HISTORY: She is . Former smoker. No alcohol or illicit drug use. Lives at home by herself. MEDICATIONS: Osteo Bi flex 1 PO bedtime [place] 3 one each PO bedtime Alprazolam 0.25mg PO QID Plavix 75mg PO bedtime Dyazide 37.5-25mg PO three times per week Vitamin D 3 1000 unit po bedtime Coreg 12.5mg pO BID Nitroglycerin 0.3mg sublingual PRN Vitamin B12 1000mcg SUBCUT monthly Trazodone 50mg PO bedtime Aspirin 81mg PO daily Ondansetron 8mg translingual TID PRN Levalbuterol 1-2 puff inhalation Q 4 hours PRN Memantine 10mg PO BID Breo Ellipta 200-25mcg one inhalation daily Pravastatin 80mg PO daily Tramadol 50mg PO BID PRN Albuterol sulfate 2.5mg inhalation Q 4-6 hours PRN ALLERGIES: Aspirin Atorvastatin Bee venom Codeine Hornet venom Ibuprofen Iodinated contrast Levofloxacin Penicillin Pentazocine lactate Sulfa Tuberculin Wasp PHYSICAL EXAMINATION: VITAL SIGNS: Temperature 97.7, heart rate 94, respiratory rate 14, blood pressure 127/92 and pulse ox 96%. HEENT: Head normocephalic, atraumatic. Eyes: Extraocular muscles are intact. Pupils are equal, round and reactive to light and accommodation. Ears: No lesions. Nose appeared normal. Throat: No exudate or erythema. NECK: Supple. No JVD, no carotid bruit. No lymphadenopathy or thyromegaly. LUNGS: Diminished breath sounds. Clear to auscultation. Percussion note normal. Chest symmetrical. HEART: S1, S2, no S3. No murmur. No cyanosis or clubbing. No ascites. Pulses: Dorsalis pedis and posterior tibial pulses +1 to +2 bilaterally. ABDOMEN: Soft. Nontender. Bowel sounds active. No CVA tenderness. No mass felt. Nondistended. EXTREMITIES: No edema. Full range of motion of all extremities, equal. NEUROLOGIC: No focal deficit. Cranial nerves II through XII are grossly intact. No headache, no double vision or headache. SKIN: Not dry. Intact. Turgor - normal. LYMPHATIC: No palpable lymph nodes/no lymphedema. MUSCULOSKELETAL: Normal joints with no swelling. Muscle tone is normal. LABS: WBC 7.13, hgb 13.7, hct 39.7, plt count 156, sodium 124, potassium 4.1, BUN 21.9, creatinine 0.985, glucose 89. Respiratory panel is all negative. Urine positive for mucus. Bilirubin, protein. AST 59, ALT 35. Alkaline phosphatase 141. CT of abdomen and pelvis shows large amount of rectal stool with presacral edema suggestion fecal impaction. Previous noted colonic wall thickened not well seen. Liver lesions are not well seen either. Chest x-ray shows no acute cardiopulmonary process. ASSESSMENT: 1. Fecal impaction 2. Abdominal pain 3. Nausea 4. Liver cancer with multiple metastasis 5. Failure to thrive PLAN: 1. We will admit 2. Routine telemetry orders 3. CBC and CMP daily 4. Normal saline IV at 75cc an hour 5. Continue home medications 6. Soap suds enema 7. Miralax 1 gram TID PO 8. Zofran 4mg IV Q 6 hours PRN for nausea 9. Urine culture We will follow closely. TIME SPENT: More than 70 minutes. MTDD
--- NOTE | 2021-12-04 11:44 | PN ---
DATE OF SERVICE: 12/03/21 SUBJECTIVE: The patient was seen and examine with Nurse Practitioner. She is declining chemotherapy. She will discharged on Hospice. The patient's condition is stable otherwise. She is oriented to time, place and person. PROGNOSIS: POOR TIME SPENT: More than 30 minutes. Plan and coordination of the patient's care discussed in the presence of nurse. FUAD
--- NOTE | 2021-12-09 10:52 | DS ---
DATE OF SERVICE: 12/04/21 FINAL DIAGNOSIS: 1. Fecal impaction 2. Small cell carcinoma , primary unknown 3. Metastatic liver disease 4. Coronary surgery 1997 5. Coronary artery disease with stent 2009 6. Severe chronic lung disease with history of heavy smoking 7. History of left carotid bruit 8. History of chronic bronchitic 9. History of peripheral arterial disease, followed by Dr. Garrido 10. History of left renal artery stenosis, followed by Dr. Garrido 11.Dyslipidemia 12.Generalized osteoarthritis 13.Right shoulder surgery 14.History of left hip fracture, Dr. Li, 2019 DISCHARGE INSTRUCTIONS: Discharge home today. MEDICATIONS AT DISCHARGE: Continue Albuterol inhaler Ventolin HFA Xanax Aspirin Carvedilol Plavix Amantadine Memantine Tramadol Trazodone DISCONTINUED MEDICATIONS: Pravastatin DIET INSTRUCTIONS: Continue regular diet at home ACTIVITY: As tolerated HOSPITAL COURSE: 81 year old white female hospitalized with possibility of fecal impaction. The patient was given oil retention enema, soap suds enema. The patient's condition improved. Repeat x-ray showed no evidence of any impaction and nonobstructive gas pattern. Her appetite seems to have improved. The patient was supposed to get chemotherapy for her cystic lesions to the liver along with small cell carcinoma. The patient was diagnosed to have from biopsy of the liver done by Dr. Cordoba. The patient has decided not to have chemotherapy. She wants to be on Hospice. The patient is cachetic. BMI is 14.6. Prognosis is poor considering her medical problems. CONDITION: Stable. TIME SPENT: More than 60 minutes. MTDD
--- NOTE | 2021-12-09 10:53 | PN ---
11/30/21: Level 5 12/01/21: Intermediate 12/02/21: Intermediate 12/03/21: Intermediate 12/04/21: D as in discharge MTDD
--- NOTE | 2021-12-09 14:41 | PN ---
DATE OF SERVICE: 12/01/21 SUBJECTIVE: The patient was seen and examined with the Nurse Practitioner. The patient still has mild nausea. The fecal impaction hasn't resolved in spite of Miralax also soap suds enema. This morning she was given retention enema and kept it for an hour and a half with no response, had to manually remove the impaction if possible. The patient's abdomen is not distended. Bowel sounds are active. Cardiovascular status is stable. TIME SPENT: More than 30 minutes. Plan and coordination of the patient's care discussed in the presence of nurse. FUAD
--- NOTE | 2021-12-10 13:42 | PN ---
DATE OF SERVICE: 12/02/21 SUBJECTIVE: 81 year old white female hospitalized with nausea and vomiting. The patient has evidence of fecal impaction with CT scan. The patient has been given enemas and other medications to disimpact her. Has stayed soft. Appetite has been normal. Bowel sounds are hyperactive. Practically not much abdominal pain. REVIEW OF SYSTEMS: CONSTITUTIONAL: No night sweats. No fatigue, malaise, lethargy. No fever or chills. HEENT: Eyes: No visual changes. No eye pain. No eye discharge. ENT: No runny nose. No epistaxis. No sinus pain. No sore throat. No odynophagia. No congestion. RESPIRATORY: No cough, no congestion. No hemoptysis. No shortness of breath. CARDIOVASCULAR: No angina symptoms. No CHF symptoms. No atypical chest pain for CAD. No palpitations. No PND. No orthopnea. GASTROINTESTINAL: No abdominal pain. No nausea or vomiting. No diarrhea or constipation. No hematemesis. No hematochezia. GENITOURINARY: No urgency. No frequency. No dysuria. No hematuria. No obstructive symptoms. No discharge. No pain. No significant abnormal bleeding. MUSCULOSKELETAL: No musculoskeletal pain; no joint swelling. NEUROLOGICAL: No headache. No neck pain. No syncope. No seizures. No dizziness. PSYCHIATRIC: Not anxious. No depression. No suicidal thoughts. No homicidal thoughts. SKIN: No rash. No lesions. No wounds. ENDOCRINE: No unexplained weight loss. No weight gain. HEMATOLOGIC/LYMPHATIC: No anemia. No purpura. No petechiae. No prolonged or excessive bleeding. No palpable lymph nodes. PHYSICAL EXAMINATION: VITAL SIGNS: Temperature 97.7, pulse 85, respiratory rate 20, blood pressure 134/80 and pulse ox 98%. HEENT: Head normocephalic, atraumatic. Eyes: Extraocular muscles are intact. Pupils are equal, round and reactive to light and accommodation. Ears: No lesions. Nose appeared normal. Throat: No exudate or erythema. NECK: Supple. No JVD, no carotid bruit. No lymphadenopathy or thyromegaly. LUNGS: Clear to auscultation. Percussion note normal. Chest symmetrical. HEART: S1, S2, no S3. No murmurs. No cyanosis or clubbing. No ascites. Pulses: Dorsalis pedis and posterior tibial pulses +1 to +2 bilaterally. ABDOMEN: Soft. Nontender. Bowel sounds hyperactive. No CVA tenderness. No mass felt. EXTREMITIES: No edema. Full range of motion of all extremities, equal. NEUROLOGIC: No focal deficit. Cranial nerves II through XII are grossly intact. No headache. No double vision. SKIN: Not dry. Intact. Turgor - normal. LYMPHATIC: No palpable lymph nodes/no lymphedema. MUSCULOSKELETAL: Normal joints with no swelling. Muscle tone is normal. LABS: Flatplate of abdomen was done and there was no obstructive bowel gas pattern was seen and no stools were noted. Very likely the patient had disimpacted but has not remembered when she had bowel movement. PLAN: 1. The patient will be discharged home tomorrow. TIME SPENT: More than 30 minutes. Plan and coordination of the patient's care discussed in the presence of nurse. FUAD
== END 2021-12-04 12:30 | disposition hospice, home (50) | DRG 844 ==
LOC: ED 10:40 → MEDSURG A 15:29
PROVIDERS: ADMIT Internal Medicine; ATTEND Internal Medicine
DX: Z79.899 Other long term (current) drug therapy; R63.4 Abnormal weight loss; Z72.0 Tobacco use; C80.1 Malignant (primary) neoplasm, unspecified; R62.7 Adult failure to thrive; M15.0 Primary generalized (osteo)arthritis; Z51.81 Encounter for therapeutic drug level monitoring; J44.9 Chronic obstructive pulmonary disease, unspecified; K56.41 Fecal impaction; K63.89 Other specified diseases of intestine; Z95.5 Presence of coronary angioplasty implant and graft; E86.0 Dehydration; Z20.822 Contact with and (suspected) exposure to COVID-19; E78.5 Hyperlipidemia, unspecified; C78.7 Secondary malignant neoplasm of liver and intrahepatic bile duct; E87.1 Hypo-osmolality and hyponatremia